=== PATIENT | male | born 1955 | race Caucasian/White ===

== ENCOUNTER 2017-01-15 06:41 | Inpatient (IN) ==
[2017-01-15] MEDS ORDERED: CeFAZolin Pre 2,000 MG/100 ML 2,000 MG/100 ML BAG IVPB ONE (06:55)
[2017-01-15] MEDS ORDERED: Albuterol 2.5 MG/3 ML NEBULIZER IH ONE (06:55)
[2017-01-15] MEDS ORDERED: *HR* Rocuronium Bromide 50 MG/5 ML VIAL ONE ×2 (06:59→09:56)
[2017-01-15] MEDS ORDERED: *HR* Midazolam HCl 2 MG/2 ML VIAL ONE (06:59)
[2017-01-15] MEDS ORDERED: *HR* Succinylcholine 200 MG/10 ML VIAL IVP ONE (06:59)
[2017-01-15] MEDS ORDERED: Dexamethasone 4 MG/ML VIAL ONE (06:59)
[2017-01-15] MEDS ORDERED: *HR* Phenylephrine 10 MG/ML VIAL ONE ×4 (06:59→13:16)
[2017-01-15] MEDS ORDERED: *HR* FentaNYL (PF) 100 MCG/2 ML VIAL ONE ×2 (06:59→08:19)
[2017-01-15] MEDS ORDERED: Lidocaine -MPF 2% 2 ML VIAL ONE ×3 (06:59→07:52)
[2017-01-15] MEDS ORDERED: *HR* Propofol 200 MG/20 ML VIAL IVP ONE (06:59)
[2017-01-15] MEDS ORDERED: Ondansetron 4 MG/2 ML VIAL ONE ×2 (06:59→14:29)
[2017-01-15] MEDS ORDERED: Heparin 1,000 UNITS/500 mL NS 1,000 ML ONE (07:18)
[2017-01-15] MEDS ORDERED: Ketamine *HR* 500 MG/10 ML MDV ONE (07:34)
--- NOTE | 2017-01-15 07:50 | Anesthesia Evaluation PreOp ---
Date of Encounter: 01/15/17 Time of Encounter: 07:48 - Past History Planned Operation: right fem-pop BPG Cardiac History: SD, CHF (EF was 10-15% after CABG, last EF was 40-45%), HTN ( poorly controlled), Hyperlipidemia, Cardiac Surgery (December 2015. 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: Denies Any Significant HX (Denies any strokes) Other Medical History: Thyroid (Hyperthyroid) Anesthesia History: No Prior Anesthetic Complications, Past Anesthesia (CABG) Alcohol Use: heavy Drug use: none Medications and Allergies Aspirin 81 mg PO DAILY 01/31/16 [History] Atorvastatin [Lipitor] 80 mg PO HS 01/31/16 [History] Levothyroxine [Synthroid] 25 mcg PO DAILY 01/31/16 [History] Carvedilol [Coreg] 25 mg PO BID 12/21/16 [History] Clopidogrel [Plavix] 75 mg PO DAILY 12/21/16 [History] Gabapentin [Neurontin] 300 mg PO TID 12/21/16 [History] Lisinopril [Zestril] 10 mg PO DAILY 12/21/16 [History] Carvedilol 12.5 mg PO BID 01/15/17 [History] Multivitamin [Multi-Day Vitamins] 1 each PO DAILY 01/15/17 [History] Allergies No Known Allergies Allergy (Verified 01/15/17 07:26) - Meds/Allergy Pre-op Review Medications Reviewed: Yes Allergies Reviewed: Yes Beta Blockers on Current Med List: Yes If Beta Blockers taken, Date/Time (Last Dose taken): today at approx. 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: Oriented 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 Discusses risks of lines, GA, possible need for blood products. Questions answered and agrees to proceed.)
--- NOTE | 2017-01-15 07:53 | History & Physical Report ---
Date of Encounter: 01/15/17 Time of Encounter: 07:52 24 Hour HP Update - Instructions Instructions: If the History and Physical is less than 30 days old and was completed prior to A.M. admission and or procedure and has NOT been updated on calendar day of procedure please complete this update prior to performing procedure. - Update Patient reports changes in Medical Condition: No Changes in examination, assessment, or condition: No Changes in Medication: No Preop tests/diagnostics Reviewed: Yes Surgery Remains Indicated: Yes Consent for Planned Operative Procedure(s) Verified: Yes - Pre-Operative Checklist Preoperative Checklist Indicated: Yes Prophylactic Antibiotic Ordered: Yes Home Medications Include Beta Jaciel: Yes Beta Jaciel Taken Today (Day of Surgery): Yes Beta Jaciel Taken Yesterday (Day Prior to Surgery): Yes Is VTE Prophylaxis Indicated?: Yes
[2017-01-15] MEDS: Ringers Solution, Lactated 1,000 ML IVC SCH ×3 (08:07→14:00)
--- NOTE | 2017-01-15 08:21 | Operative Note ---
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 The patient demonstrated pulse deficits and abnormal noninvasive testing. He underwent an angiogram. This demonstrated iliac artery disease on the left and a right superficial femoral artery occlusion and a left superficial femoral artery stenosis. A stent angioplasty was performed of the left iliac lesion and an attempt at passing a wire through the chronic total occlusion of the right superficial femoral artery was unsuccessful. He now comes the operating room in an attempt to revascularize the right lower extremity. Procedure After informed consent was obtained the patient was taken to the operating room. General endotracheal anesthesia was established. An arterial line was placed. The right lower extremity was sterilely prepped and draped. A timeout protocol was observed. Due to the extensive nature of the surgery and his diffuse disease to surgical team approach was utilized for this procedure. This was done in order to decrease blood loss and to decrease anesthetic time if possible. Dissection was made in the right groin. Dissection was carried down to the common femoral artery and bifurcation vessels. The dissection was carried to the level of the inguinal ligament and to the femoral bifurcation. The vessel was significantly calcific though there was a palpable pulse. The superficial femoral artery has Very dense calcific plaque disease. The greater saphenous vein was dissected through interrupted incisions along the length of the thigh into the level of the knee. Dissection of the above-knee popliteal revealed a very densely inflamed and calcific artery. Therefore the dissection was carried more distally to the area behind the patella and behind the knee. This area of the vessel appeared soft. The vein was then harvested and flushed with heparinized saline. It appeared to be of adequate size and caliber. Heparin was then administered area after 3 minute delay the common femoral artery and bifurcation vessels were then clamped. An 11 blade knife and Mcgarry scissors were used to open the common femoral artery and the distal aspect. The very thickened dense calcific plaque was inhibiting the adequate hemostasis with clamps and vessel loops. Therefore an endarterectomy was necessary. Also the calcific plaque was so dense that a 6-0 Prolene could not be passed through the plaque nor could a 5-0 Prolene. Therefore an endarterectomy was performed of the distal third of the common femoral artery and orifice of the profunda femoris artery. The size of the remnant vessel allowed a clamp to be placed immediately proximal to it and hemostasis was achieved. However due to the width of the endarterectomy incision the vein needed to be placed then in a non-reversed fashion because of the larger diameter of the groin level vein. With this done the end of vein was anastomosed to the side of the endarterectomized common femoral artery. The clamps are removed and hemostasis was achieved at the anastomotic area. LeMaitre valvulotomes were then inserted beginning with a 2 and then using a 2.5 and then finally a 3.5 diameter device. With the passage of these devices all the valves were lysed and excellent pulsatile flow was achieved through the vein bypass. With this accomplished the vein was back flushed with heparinized saline. A subsartorial tunnel was created and the vein was passed from the groin to the popliteal area. The popliteal artery was opened at the distal above the knee level. Significant plaque was encountered which required an endarterectomy to be performed at the distal location. After this was accomplished the end of the vein was sewn to the side of the endarterectomized right popliteal artery. After appropriate backbleeding and flushing the graft was opened. However evaluation of the Doppler signals distally revealed no Doppler signals at the ankle. Therefore my concern was residual plaque in the popliteal artery as by angiogram it showed dense disease. A below the knee popliteal artery incision was then made on the medial aspect of the proximal calf. Dissection was carried down to the popliteal artery and control was obtained of the vessel. A very hard area of plaque formation was identified at the very proximal aspect of the [id number] popliteal artery. An endarterectomy was then performed of the below the knee popliteal artery. A longitudinal incision was made. Very thick and dense plaque was identified and this was endarterectomized. A bovine pericardial patch angioplasty was then performed over this endarterectomized [id number] popliteal artery. After appropriate backbleeding and flushing the vessels were opened. Pulsatile flow was identified in the popliteal artery from [id number] to [id number]. In addition a Doppler signal was identified at the posterior tibial artery at the ankle. All the incisions were then irrigated and hemostasis achieved. The incisions were closed in layers using absorbable suture. There were no intraoperative complications. The patient tolerated the procedure well. The patient was taken from the operating room to the recovery room in a hemodynamically stable state and extubated.
[2017-01-15] MEDS ORDERED: *HR* HYDROmorphone (PF) 1 MG/ML SYRINGE IVP PRN (09:11)
[2017-01-15] MEDS ORDERED: Ondansetron 4 MG/2 ML VIAL IVP PRN ×2 (09:11→16:49)
[2017-01-15] MEDS ORDERED: *HR* Labetalol 100 MG/20 ML MDV IVP PRN (09:11)
[2017-01-15] MEDS ORDERED: NiCARdipine 2.5 MG/10 ML Syringe IVPB ONE (09:21)
[2017-01-15] MEDS ORDERED: *HR* Heparin 5,000 UNIT/ML VIAL ONE ×2 (09:30→11:52)
--- NOTE | 2017-01-15 10:48 | Anesthesia Procedures ---
Date of Encounter: 01/15/17 Time of Encounter: 08:15 Procedures: Anesthesia - Arterial Line Consent obtained: written consent Time out performed: Yes Sedation: Versed (mg): 1 Sedation: Fentanyl (mcg): 100 Supplemental Oxygen via Nasal Cannula (L/min): 15 (FM) Local Anesthetic: Lidocaine 1% Amount of Anesthetic used (mls): 1 Size (Gauge): 20 Length (inches): 1 3/4 Technique Used: sterile prep, guide wire technique, direct puncture technique Post-Procedure: line taped into place, dry sterile dressing placed Patient tolerated procedure: well Complications: none Site: Radial L Vitals: see anesthetic record
[2017-01-15] MEDS ORDERED: Acetaminophen IV 1,000 MG/100 ML INFUS..BTL ONE (10:50)
[2017-01-15] MEDS ORDERED: *HR* HYDROmorphone 2 MG/ML SYRINGE ONE (14:05)
--- NOTE | 2017-01-15 15:51 | Anesthesia Evaluation Post Op ---
Date of Encounter: 01/15/17 Time of Encounter: 15:50 - Vital Signs Vital Signs: Vital Signs/O2 Sat, Most Current Temp Pulse Resp BP Pulse Ox 97.4 F L 80 16 99/57 99 01/15/17 15:20 01/15/17 15:30 01/15/17 15:30 01/15/17 15:30 01/15/17 15:30 - Lungs Lungs: Clear Ascult./Percussion - Airway Airway: Non-obstructed - Cardiovascular Regular Rate - Mental Status Mental Status: Alert & Oriented, Answers Appropriately - Pain Pain Scale: 3 Pain Scale used: Numeric (1 - 10) - Nausea Vomiting Nausea Vomiting: Not Present - Hydration Hydration: NPO, Sánchez catheter - Discharge PostOp Status: Transfer Patient to floor
[2017-01-15] MEDS ORDERED: Naloxone 0.4 MG/ML INJ IVP PRN (15:57)
[2017-01-15] MEDS ORDERED: Acetaminophen 325 MG TABLET PO PRN (15:57)
[2017-01-15] MEDS ORDERED: *HR* Morphine 2 MG/ML SYRINGE IVP PRN ×2 (15:57)
[2017-01-15] MEDS: *HR* HYDROcodone/Acet 5/325 mg TABLET PO PRN ×2 (16:30→23:20)
[2017-01-15] MEDS: Gabapentin 300 MG CAPSULE PO SCH ×2 (16:44→21:18)
[2017-01-15] MEDS: ceFAZolin 2,000 MG in D5% in Water 100 ML IVPB SCH (16:46)
--- NOTE | 2017-01-15 17:37 | Operative Note ---
Date of procedure: 01/15/17 Pre-op diagnosis: Peripheral Vascular Disease with Disabling claudication Post-op diagnosis: same Procedure: 1. Right femoral to popliteal artery bypass with nonreversed right greater saphenous vein. 2. Right common and deep femoral artery endarterectomy 3. Right above knee popliteal artery endarterectomy. 4. Right below knee popliteal artery endarterectomy with bovine pericardial patch angioplasty. Complications: None Anesthesia: GETA Surgeon: Steve Gavin Co-Surgeon: Pierre Barbour Estimated blood loss (cc): 250 Condition: stable Disposition: PACU Procedure in Detail: Indications: The patient is a 61 year old male who was found to have severe peripheral vascular disease with disabling claudication. He was found to have a right superficial femoral artery occlusion and right popliteal disease on angiogram. Bypass was recommended for symptomatic relief. Procedure: The patient was identified in the preoperative area. The risks, benefits, and alternatives of the procedure were discussed. All questions were answered. He was then taken to the operating room and placed in supine position on the operating room table. After the induction of general endotracheal anesthesia, he was cleaned and draped in normal sterile fashion. A two surgeon approach was utilized for this procedure in order to minimize anesthetic time and the risks for complications due to the patients comorbid conditions. In addition, a two surgeon approach was used for intraoperative decision making. An oblique incision was made over the right groin sharply. Hemostasis was obtained with electrocautery. Through a process of blunt, sharp, and electrocautery dissection, the right femoral vessels were dissected circumferentially and surrounded with vessel loops. A longitudinal incision was made on the left medial distal thigh sharply. Hemostasis was obtained with electrocautery. Through a process of blunt, sharp, and electrocautery dissection, the right above-knee popliteal artery was dissected proximally and distally and surrounded with vessel loops. Significant plaque was noted in the proximal popliteal artery and the artery was then dissected more distally and surrounded with a vessel loop. Multiple skin incisions were made along the thigh between the two incisions along the saphenous vein. The saphenous vein was completely mobilized with blunt, sharp, and electrocautery dissection. The side branches were clamped, divided, tied off with 3-0 and 4-0 silk sutures. Distally, the vein was mobilized in the calf, clamped, divided, tied off with silk suture ligature and then further completely mobilized through the incisions. The vein was flushed and noted to be adequate in size and consistency for bypass. The patient received 5000 units of intravenous heparin. Additional heparin was given throughout the procedure to maintain adequate anticoagulation. The vein was initially reversed and tension was applied to the femoral vessel loops. An arteriotomy was then made in the common femoral artery and the vein graft was cut to fit the defect. At this point it was noted that a highly calcific plaque was noted to be present within the common femoral artery. The vessel loop did not provide complete hemostasis proximally. A 4 nepali janet balloon was then advanced though the arteriotomy and inflated to improve hemostasis It was then noted that the plaque would need to be excised in order to perform the anastamosis. A freer elevator was then used to perform an endarterectomy on the common femoral and origin orf the deep femoral arteries. The arteriotomy had to be extended to accomplish the endarterectomy. On completion of the endarterctomy, pulsatile flow as noted from the external iliac artery and strong retrograde flow was noted from the deep femoral artery. Due to the size of the arteriotomy, the graft was reoriented in a nonreversed fashion. The graft was cut to fit the arteriotomy and anastamosed with a running 6-0 Prolene. After completing the proximal anastamosis, the vessels were reperfused. A 2.0mm, 2.5mm then 3.5mm valvulotome was then advanced and the valves were lysed. Then pulsatile flow was noted through the vein graft. A tunnel was then created between the femoral and popliteal artery incisions. The vein was marked without torsion and then it was tunneled between the two incisions. After tunneling, the vein was unclamped and was noted to have strong pulsatile flow once again. It was re-clamped. The popliteal vessels were occluded and a longitudinal arteriotomy was made in the popliteal artery. Significant plaque was noted at the above knee popliteal artery and an endarterectomy was performed with a dental freer. Inspection of the proximal and distal endpoints revealed no elevated flaps. The distal end of the graft was sutured in place with a running 6-0 Prolene,. The distal arterial anastomosis was completed and prior to completing the closure, the popliteal vessels were flushed and reoccluded. Heparinized saline was infused into the lumen. The anastamosis was tied and then flow was restored. A polyphasic signal was identified distal to the distal anastamosis with a doppler. However, no signals were identified at the pedal vessels. An incision was then made below the knee and through a process of blunt, sharp and electrocautery dissection, the popliteal artery was dissected circumferentially and surrounded with vessel loops. Tension was applies to the vessel loops and a longitudinal arteriotomy was made. Nearly occlusive plaque was encountered and a below knee popliteal artery endarterectomy was performed. Proximal and distal endpoints were inspected and no elevated flaps were identified. Vigorous pulsatile flow was noted when the proximal loop was released temporarily. A bovine pericardial patch was cut to fit the defect and sutured in place with a running 6-0 prolene. Flow was then restored. Polyphasic signals were noted distal to the distal anastomosis as well as at the posterior tibial artery. Wounds were irrigated with antibiotic-containing saline. Meticulous hemostasis was obtained throughout the wound with electrocautery. Wounds were reapproximated with layers of 2-0 and 3-0 Vicryl. Skin was reapproximated with 4-0 Vicryl. A sterile dressing was applied. The patient was extubated and taken to recovery room in stable condition.
[2017-01-16] MEDS: ceFAZolin 2,000 MG in D5% in Water 100 ML IVPB SCH ×2 (01:17→09:18)
[2017-01-16 05:13] LABS: Hematocrit 24.8 % (37.5-50.1); Mean Corpuscular HGB Conc 33.5 g/dL (31.6-35.5); Mean Corpuscular Hemoglobin 30.4 pg (28.0-33.3); Mean Corpuscular Volume 90.8 fL (83.0-100.0); Mean Platelet Volume 10.4 fL (9.4-12.4); Platelet Count 200 K/mcL (140-400); Red Blood Count 2.73 M/mcL (4.19-5.50); Red Cell Distribution Width 14.1 % (11.5-14.5)
[2017-01-16 05:30] LABS: Potassium 4.8 mEq/L (3.5-4.5)
[2017-01-16 05:37] LABS: Hemoglobin 8.3 g/dL (12.9-16.9)
[2017-01-16 05:39] LABS: Lymphocytes # 2.1 K/mcL (0.6-4.6); Monocytes # 1.1 K/mcL (0.0-1.3); Platelet Estimate Normal (Normal)
[2017-01-16] MEDS ORDERED: Levothyroxine 25 MCG TABLET PO SCH (06:30)
[2017-01-16] MEDS: Gabapentin 300 MG CAPSULE PO SCH ×2 (07:48→14:56)
[2017-01-16] MEDS: *HR* HYDROcodone/Acet 5/325 mg TABLET PO PRN ×2 (07:48→14:56)
[2017-01-16] MEDS ORDERED: Multivit/Ca/Min/Fe/FA 1 TAB TABLET PO SCH (09:00)
[2017-01-16] MEDS ORDERED: Aspirin 81 MG TAB.CHEW PO SCH (09:00)
[2017-01-16 15:48] VITALS: BP 127/71
--- NOTE | 2017-01-16 17:14 | Discharge Summary ---
Date of Encounter: 01/16/17 Time of Encounter: 17:12 - Discharge Diagnosis (1) PAD (peripheral artery disease) Priority: Primary Status: Acute Comments: Severe lifestyle limiting claudication of both lower extremities. Patient underwent extensive revascularization for the right lower extremity at surgery. The patient had undergone left iliac interventional therapy. Patient will need further left superficial femoral artery endovascular intervention (2) Carotid artery occlusion Priority: Secondary Status: Chronic Comments: Right internal carotid artery occlusion Qualifiers: Laterality: right Qualified Code(s): I65.21 - Occlusion and stenosis of right carotid artery (3) HTN (hypertension) Priority: Secondary Status: Chronic Comments: Patient is under appropriate medical control for hypertension. Qualifiers: Hypertension type: essential hypertension Qualified Code(s): I10 - Essential (primary) hypertension (4) Coronary artery disease Priority: Secondary Status: Chronic Comments: Patient is presently asymptomatic for coronary artery disease. He has a past history of myocardial infarction. Qualifiers: Coronary Disease-Associated Artery/Lesion type: [place] artery [place] vs. transplanted heart: [place] heart Associated angina: without angina Qualified Code(s): I25.10 - Atherosclerotic heart disease of [place] coronary artery without angina pectoris - Discharge Medications Prescriptions: HYDROcodone/Acet 5/325 mg [Clyman 5-325 mg] 1 tab PO Q6HR PRN #10 tablet PRN Reason: Moderate Pain Home Medications: Aspirin 81 mg PO DAILY 01/31/16 [History] Atorvastatin [Lipitor] 80 mg PO HS 01/31/16 [History] Levothyroxine [Synthroid] 25 mcg PO DAILY 01/31/16 [History] Carvedilol [Coreg] 25 mg PO BID 12/21/16 [History] Clopidogrel [Plavix] 75 mg PO DAILY 12/21/16 [History] Lisinopril [Zestril] 10 mg PO DAILY 12/21/16 [History] Carvedilol 12.5 mg PO BID 01/15/17 [History] Multivitamin [Multi-Day Vitamins] 1 each PO DAILY 01/15/17 [History] HYDROcodone/Acet 5/325 mg [Clyman 5-325 mg] 1 tab PO Q6HR PRN #10 tablet [Rx] Allergies/Adverse Reactions: Allergies No Known Allergies Allergy (Verified 01/15/17 07:26) Date of admission: 01/15/17 14:25 Primary care physician: Niurka Aaron MD Consults: None Procedure(s) Performed: Right femoral-popliteal bypass graft, right common femoral artery endarterectomy , right above-knee popliteal artery endarterectomy, and right below the knee popliteal artery endarterectomy with bovine pericardial patch angioplasty. Discharging clinician: Pierre Barbour Anticipated date of discharge: 01/16/17 - Patient Status Disposition: Home, Self-Care Condition: Good Functional capacity at discharge: independent ambulation Overall status at discharge: patient is progressing back to baseline - Discharge Instructions Follow Up With: Jaida Morel CNP [Advanced Practice Nurse] - 01/23/17 2:30 pm Pierre Barbour MD [Partnered Physician] - 02/06/17 9:45 am Niurka Aaron MD [Primary Care Provider] - Additional Instructions: Remove right thigh dressings in 2 days. Keep right thigh surgical incisions dry for a total of 5 days following surgery. No automobile driving. No lifting greater than 10 pounds. No manual labor. Patient may ambulate inside and outside. Patient may use stairs as tolerated. Patient is to resume his usual medications with the exception of the gabapentin which is on hold. A prescription for Clyman will be written for the patient for postoperative analgesia. The patient is to use the incentive spirometer at home 10 times an hour while awake. Patient is to elevate the right lower extremity while seated. He is to avoid standing for more than 5 minutes at a time. - Diet and Activity Activity: increase activity as tolerated Diet: low fat, low cholesterol - Hospital Course Hospital course: Mr. Saab is a 61 year old male For surgery for the right lower extremity. He underwent an extensive right lower extremity revascularization including bypass grafting and endarterectomies. The patient had a warm and pink right foot following surgery. Had a palpable pedal pulse and multiphasic Doppler signals. The patient was ambulating on the floor on postoperative day #1. The patient will be evaluated with a bladder scan as he has not yet urinated since his Sánchez was removed earlier this morning. If the patient is able to spontaneously void he will be discharged to home later today. If he is unable to void a Sánchez catheter will be placed and we will be placed on gravity drainage for the Sánchez catheter overnight and we will again remove the catheter in the morning and attempt to have the patient spontaneously void. - Time Spent with Patient Total time spent providing and/or coordinating discharge services: Exam Vital Signs, Last 4 Hours Temp Pulse Resp BP Pulse Ox 01/16/17 15:43 97.5 F L 68 16 127/71 97 General: Present: Conversant, No Apparent Distress HEENT: Present: Atraumatic Cardiac: Present: Reg Rate and Rhythm, Normal S1 and S2 Lungs: Present: Decreased breath sounds Neuro: Present: Alert and responsive, No focal deficits noted Abdomen: Present: Soft, Non-tender Vascular: Present: Normal capillary refill, Pulse, normal, Surgical incisions ( Mild drainage from the distal thigh incision on the right thigh. There is no finding of hematoma or ecchymosis.) Skin: Present: No rashes noted on visualized skin - VTE Documentation of Mechanical Device: Intermittent pneumatic compression device
== END 2017-01-16 18:00 | disposition home or self-care (01) | DRG 181 ==
LOC: SAMDAY 06:41 → 2NNU 14:25
PROVIDERS: ADMIT Surgery Vascular Surgery; ATTEND Surgery Vascular Surgery

== ENCOUNTER 2017-01-19 03:59 | Inpatient (IN) ==
[2017-01-19] MEDS ORDERED: Lidocaine 1% 20 ML MDV ID ONE (04:53)
--- NOTE | 2017-01-19 04:59 | Emergency Department Note ---
Disposition Clinical Impression: NSTEMI (non-ST elevated myocardial infarction) Disposition: Admitted As Inpatient Condition: Good Referrals: Jaida Morel CNP [Primary Care Provider] - Forms: Work/School Release, ED Satisfaction Letter Time of Disposition: 06:59 General Adult HPI - General Chief complaint: ED General Medical Stated complaint: ringing in ears Time Seen by Provider: 01/19/17 04:53 Source: patient, family Mode of arrival: ambulatory Limitations: no limitations Nursing Notes Reviewed: Yes Vital Signs Reviewed: Yes - History of Present Illness HPI Narrative: 61 year old male with recent femop bypass due to blocked arteries by Dr. 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 Viji states he saw the incision and that he became increasigly more anxious and felt his blood pressure go up. his took his blood pressure and it was 178/140s by an automatic cuff. Viji sttes that that time he devleoped blurred vision and ringing in the ears which has resolve now, which he attributes to his anxiety. Denies headache, fevers, nausea and vomitting. He is feeling incresingly numbness and tingling to the RLE but his foot is warm with palpable DP pulse. Pain Scale: 0 - Related Data Home Medications Medication Instructions Recorded Confirmed Aspirin 81 mg PO DAILY 01/31/16 01/15/17 Atorvastatin [Lipitor] 80 mg PO HS 01/31/16 01/15/17 Levothyroxine [Synthroid] 25 mcg PO DAILY 01/31/16 01/15/17 Carvedilol [Coreg] 25 mg PO BID 12/21/16 01/15/17 Clopidogrel [Plavix] 75 mg PO DAILY 12/21/16 01/15/17 Lisinopril [Zestril] 10 mg PO DAILY 12/21/16 01/15/17 Carvedilol 12.5 mg PO BID 01/15/17 01/15/17 Multivitamin [Multi-Day Vitamins] 1 each PO DAILY 01/15/17 01/15/17 Previous Rx's Medication Instructions Recorded HYDROcodone/Acet 5/325 mg [[place] 1 tab PO Q6HR PRN #10 tablet 01/16/17 5-325 mg] Allergies Allergy/AdvReac Type Severity Reaction Status Date / Time No Known Allergies Allergy Verified 01/15/17 07:26 Constitutional: Denies: fever, chills, weakness, weight change Eyes: Reports: other (blurriness to vision). Denies: eye pain, eye discharge, vision change ENT ED: Reports: other (ringin in the ear). Denies: ear pain, throat pain, dental pain, hearing loss, epistaxis, congestion, dysphagia Cardiovascular: Denies: chest pain, palpitations, dyspnea on exertion, edema, syncope Respiratory: Denies: cough, dyspnea, wheezes, hemoptysis, stridor Gastrointestinal: Denies: abdominal pain, nausea, vomiting, diarrhea, constipation, hematemesis, melena, hematochezia Genitourinary: Denies: urgency, dysuria, frequency, hematuria Musculoskeletal: Denies: back pain, neck pain, arthralgia, myalgia Integumentary: Reports: as per HPI, other (laceration). Denies: rash, abrasion , lesions Neurological: Denies: headache, weakness, numbness, paresthesias, confusion, abnormal gait, vertigo Psychiatric: Denies: anxiety, depression, suicidal thoughts, homicidal thoughts , auditory hallucinations, visual hallucinations Endocrine: Denies: fatigue Hematological/Lymphatic: Denies: easy bleeding, easy bruising Allergic/Immunologic: Denies: facial swelling, urticaria Past Medical History - Past Medical History Medical history: Reports: myocardial infarction, hyperlipidemia, hypertension, thyroid disease, coronary artery disease, CHF Surgical history: Reports: angioplasty/stent, coronary bypass (CABG), other Psychiatric history: Reports: no psych history - Social History Smoking Status: Former smoker Smokeless Tobacco Status: No Alcohol use: Reports: heavy Drug use: Reports: none Physical Exam - General Limitations: no limitations General appearance: alert, in no apparent distress - Head Head exam: atraumatic, normocephalic, normal inspection - Eye Eye exam: Present: normal appearance, PERRL, EOMI - Expanded Eye Exam Pupils: Left: reactive - ENT ENT exam: normal exam, normal oropharynx, mucous membranes moist - Expanded ENT Exam External ear exam: Present: normal external inspection Mouth exam: Present: normal external inspection Teeth exam: Present: normal inspection Throat exam: Present: normal inspection - Neck Neck exam: Present: normal inspection, full ROM, trachea midline - Chest Chest inspection: Present: normal inspection, symmetric chest wall rise - Respiratory Respiratory exam: Present: normal lung sounds bilaterally - Cardiovascular Cardiovascular exam: Present: regular rate, normal rhythm, normal heart sounds, other (CABG scar) - Abdominal Exam Abdominal exam: Present: soft, Non-Tender. Absent: tenderness, distention, guarding, rebound, rigidity - Extremities Exam Extremities exam: Present: normal inspection, full ROM. Absent: tenderness, pedal edema - Expanded Upper Extremity Exam Shoulder exam: Present: normal inspection, full ROM Arm exam: Present: normal inspection, full ROM Elbow exam: Present: normal inspection, full ROM Forearm/Wrist exam: Present: normal inspection, full ROM Hand exam: Present: normal inspection, full ROM Vascular exam: Normal: capillary refill, radial pulse - Expanded Lower Extremity Exam Hip/Pelvis exam: Present: normal inspection, full ROM Upper leg exam: Present: normal inspection, full ROM 1 - mutiple surgical scars post op, with minimal ecchymosis in dependent areas 2 - 2cm post surgical incision that is open Knee exam: Present: normal inspection, full ROM Lower leg exam: Present: normal inspection, full ROM Ankle exam: Present: normal inspection, full ROM Foot/toe exam: Present: normal inspection, full ROM Neurovascular/Tendon exam: Absent: motor deficit, sensory deficit, tendon deficit - Back Exam Back exam: Present: normal inspection, full ROM. Absent: tenderness - Neurological Exam Neurological exam: Present: alert, oriented X3 - Expanded Neurological Exam Patient oriented to: Present: person, place, time Speech: Present: fluid speech Coma Scale Eye Opening: Spontaneous Coma Scale Motor Response: Obeys Commands Coma Scale Verbal Response: Oriented Coma Scale Total: 15 - Psychiatric Psychiatric exam: Present: normal affect, normal mood - Skin Skin exam: Present: warm, dry, intact, normal color Course Course Narrative: we will repair laceration and do focused cardiac exam to assess for demand ischemic due to elevated blood pressure recorded at home - Reevaluation(s) Reevaluation #1: discussing with pativicenta about his history of chest pain due to elevated troponin and he states that he has not been experiencing chest pain but his heartburn seems to have been worse over the past 4 days and has had to increase his tums without relief. WE will consult cards and vascular before starting heparin. Time: 06:56 - Consultations Consultation #1: discussed case with cards and vascular (Niko/Romaine) and they both agree that patient can be heparinized for his NSTEMI. Time: 06:59 Vital Signs Temperature 98.4 F 01/19/17 04:02 Pulse Rate 101 01/19/17 04:02 Respiratory Rate 18 01/19/17 04:02 Blood Pressure 160/77 01/19/17 04:02 O2 Sat by Pulse Oximetry 97 01/19/17 04:02 Temperature 98.4 F 01/19/17 04:02 Pulse Rate 101 01/19/17 07:14 Respiratory Rate 18 01/19/17 07:14 Blood Pressure 156/57 01/19/17 07:14 O2 Sat by Pulse Oximetry 95 01/19/17 07:14 Oxygen Delivery Oxygen Delivery Room Air Procedures - Laceration Laceration 1 Site: lower extremity Side (If applicable): right Description: linear Depth: simple, single layer Local Anesthetic: lidocaine 1%, with epi Amount of Anesthesia Used (mL): 3 Pre-repair: wound explored Skin layer closed with: nylon Size: 3-0 Technique: simple, interrupted Medical Decision Making - Lab Data Result diagrams: 01/19/17 05:32 01/19/17 05:32 Lab Results 01/19/17 01/19/17 01/19/17 Range/Units 05:32 05:32 05:32 WBC 12.0 H (4.3-11.1) K/mcL RBC 2.63 L (4.19-5.50) M/mcL Hgb 8.0 L (12.9-16.9) g/dL Hct 24.3 L (37.5-50.1) % MCV 92.4 (83.0-100.0) fL MCH 30.4 (28.0-33.3) pg MCHC 32.9 (31.6-35.5) g/dL RDW 14.1 (11.5-14.5) % Plt Count 249 (140-400) K/mcL MPV 9.8 (9.4-12.4) fL Immature Gran % 0.6 (0-4) % Seg Neutrophils % 67.2 % Lymphocytes % 20.2 % Monocytes % 9.6 % Eosinophils % 1.9 % Basophils % 0.5 % Neutrophils # 8.1 (1.6-8.9) K/mcL Lymphocytes # 2.4 (0.6-4.6) K/mcL Monocytes # 1.2 (0.0-1.3) K/mcL Eosinophils # 0.2 (0.0-0.6) K/mcL Basophils # 0.1 (0.0-0.2) K/mcL Immature Plt Fraction 5.2 (1.1-6.1) % PT (9.4-12.1) Seconds INR APTT (26.0-36.0) Seconds Sodium 137 (136-145) mEq/L Potassium 5.0 H (3.5-4.5) mEq/L Chloride 102 (98-109) mEq/L Carbon Dioxide 27 (19-29) mEq/L BUN 30 H (8-26) mg/dL Creatinine 1.44 H (0.72-1.25) mg/dL Est GFR ( Amer) > 60 (> 60) Est GFR (Non-Af Amer) 50 L (> 60) BUN/Creatinine Ratio 21 (6-26) Glucose 122 H (70-99) mg/dL Calculated Osmolality 291 (280-300) Calcium 10.8 (8.6-10.8) mg/dL Total Bilirubin 0.7 (0.2-1.2) mg/dL AST 29 (5-34) Units/L ALT 12 (0-55) Units/L Alkaline Phosphatase 71 (38-126) Units/L Troponin I 2.11 H* (0-0.03) ng/mL Serum Total Protein 7.4 (6.0-8.3) g/dL Albumin 3.6 (3.5-5.0) g/dL Globulin 3.8 H (2.4-3.5) g/dL Albumin/Globulin Ratio 0.9 L (1.1-2.2) 01/19/17 Range/Units 05:32 WBC (4.3-11.1) K/mcL RBC (4.19-5.50) M/mcL Hgb (12.9-16.9) g/dL Hct (37.5-50.1) % MCV (83.0-100.0) fL MCH (28.0-33.3) pg MCHC (31.6-35.5) g/dL RDW (11.5-14.5) % Plt Count (140-400) K/mcL MPV (9.4-12.4) fL Immature Gran % (0-4) % Seg Neutrophils % % Lymphocytes % % Monocytes % % Eosinophils % % Basophils % % Neutrophils # (1.6-8.9) K/mcL Lymphocytes # (0.6-4.6) K/mcL Monocytes # (0.0-1.3) K/mcL Eosinophils # (0.0-0.6) K/mcL Basophils # (0.0-0.2) K/mcL Immature Plt Fraction (1.1-6.1) % PT 12.9 H (9.4-12.1) Seconds INR 1.2 APTT 23.8 L (26.0-36.0) Seconds Sodium (136-145) mEq/L Potassium (3.5-4.5) mEq/L Chloride (98-109) mEq/L Carbon Dioxide (19-29) mEq/L BUN (8-26) mg/dL Creatinine (0.72-1.25) mg/dL Est GFR ( Amer) (> 60) Est GFR (Non-Af Amer) (> 60) BUN/Creatinine Ratio (6-26) Glucose (70-99) mg/dL Calculated Osmolality (280-300) Calcium (8.6-10.8) mg/dL Total Bilirubin (0.2-1.2) mg/dL AST (5-34) Units/L ALT (0-55) Units/L Alkaline Phosphatase (38-126) Units/L Troponin I (0-0.03) ng/mL Serum Total Protein (6.0-8.3) g/dL Albumin (3.5-5.0) g/dL Globulin (2.4-3.5) g/dL Albumin/Globulin Ratio (1.1-2.2) - EKG Data EKG #1 EKG attestation: Yes I reviewed and interpreted this EKG. EKG results narrative: sinus tachycardia with rate of 104. old inferiolateral STEMI present. new ischemic changes in leads with t wave inversions in II, avf and ST elevation in III, with v4 depression which is different from 12/13/16. 0458 EKG #2: NSR with rate of 99. Same as EKG #1 0644 Critical Care Time Critical Care Time: Yes Total Critical Care Time: 45 Attestation: Critical care performed: Time is exclusive of separately billable procedures. Time includes: direct patient care, patient reassessment, coordination of patient care, interpretation of data (laboratory data, radiology data, and respiratory data), review of patient's medical records, medical consultation and documentation of patient care. Procedures included in critical care time: Procedures excluded from critical care time: Laceration repair Attestation Statement - Attestation Attestation: I, Rudi Ferreira MD, personally evaluated this patient and discussed their management with the resident physician. I reviewed the resident's note and agree with the documented findings, medical decision making, and plan of care. 61-year-old male presents to the emergency department with multiple complaints. Patient had a vascular bypass procedure on his right leg approximately 4 days ago and his primary concerned is that one of the wounds on the leg has dehisced and is weeping serosanguineous fluid. No significant pain in the leg. No fever. He also complains that he has had intermittent ringing in his ears and feels like he can sometimes hears heart beating in his ears. States that it sounds like his head is in a barrel at times. This seems to come and go. He complains of being very anxious and panicky due to the drainage on his leg. No chest pain or shortness of breath. No fever. On examination patient is a well-developed well-nourished male in no acute distress. He is alert and oriented 3. There is no cyanosis or diaphoresis. Chest is nontender to palpation. Breath sounds are clear and equal bilaterally. Heart regular rate and rhythm. Abdomen soft and nontender with normal bowel sounds. There is a 2-3 cm area of wound dehiscence on the medial right thigh. Labs reviewed and patient noted to have an elevated troponin of 2.11. EKG does show some new but nonspecific changes with some new T-wave inversions and some lateral ST segment depression. Dr. Lange discussed case with the vault maker, Dr. Pope, and also with the vascular surgeon, Dr. Gavin. They both felt patient could be given heparin. The hospitalist, Dr. Gamboa, was consulted and accepted admission of the patient.
[2017-01-19 05:39] LABS: Basophils # 0.1 K/mcL (0.0-0.2); Basophils % 0.5 %; Eosinophils # 0.2 K/mcL (0.0-0.6); Eosinophils % 1.9 %; Hematocrit 24.3 % (37.5-50.1); Immature Granulocytes % 0.6 % (0-4); Immature Platelets 5.2 % (1.1-6.1); Lymphocytes # 2.4 K/mcL (0.6-4.6); Lymphocytes % 20.2 %; Mean Corpuscular HGB Conc 32.9 g/dL (31.6-35.5); Mean Corpuscular Hemoglobin 30.4 pg (28.0-33.3); Mean Corpuscular Volume 92.4 fL (83.0-100.0); Mean Platelet Volume 9.8 fL (9.4-12.4); Monocytes # 1.2 K/mcL (0.0-1.3); Monocytes % 9.6 %; Neutrophils # 8.1 K/mcL (1.6-8.9); Platelet Count 249 K/mcL (140-400); Red Blood Count 2.63 M/mcL (4.19-5.50); Red Cell Distribution Width 14.1 % (11.5-14.5); Segmented Neutrophils % 67.2 %
[2017-01-19 05:52] LABS: Alanine Aminotransferase 12 Units/L (0-55); Albumin 3.6 g/dL (3.5-5.0); Albumin/Globulin Ratio 0.9 (1.1-2.2); Alkaline Phosphatase 71 Units/L (38-126); Aspartate Amino Transferase 29 Units/L (5-34); BUN/Creatinine Ratio 21 (6-26); Bilirubin,Total 0.7 mg/dL (0.2-1.2); Blood Urea Nitrogen 30 mg/dL (8-26); Calcium 10.8 mg/dL (8.6-10.8); Carbon Dioxide 27 mEq/L (19-29); Chloride 102 mEq/L (98-109); Globulin 3.8 g/dL (2.4-3.5); Glucose 122 mg/dL (70-99); Osmolality,Calculated 291 (280-300); Sodium 137 mEq/L (136-145); Total Protein 7.4 g/dL (6.0-8.3); eGFR For African Americans > 60 (> 60); eGFR For Non-African Americans 50 (> 60)
[2017-01-19] MEDS ORDERED: Aspirin 81 MG TAB.CHEW PO ONE (06:17)
[2017-01-19 06:32] LABS: INR 1.2; Prothrombin Time 12.9 Seconds (9.4-12.1)
[2017-01-19] MEDS ORDERED: *HR* Heparin 5,000 UNIT/ML VIAL IVP ONE (06:58)
[2017-01-19] MEDS ORDERED: *HR* Heparin 5,000 UNIT/ML VIAL IVP PRN ×2 (06:58)
[2017-01-19] MEDS ORDERED: Heparin 25,000 UNIT/500 ML D5W 25,000 UNIT/500 ML MLS IVC SCH (07:00)
[2017-01-19 07:19] LABS: Activated Partial Thrombo Time 23.8 Seconds (26.0-36.0)
[2017-01-19] MEDS ORDERED: *HR* Metoprolol 5 MG/5 ML VIAL IVP PRN (07:26)
[2017-01-19 08:20] LABS: Hematocrit 23.6 % (37.5-50.1); Hemoglobin 7.8 g/dL (12.9-16.9); Immature Platelets 4.3 % (1.1-6.1); Mean Corpuscular HGB Conc 33.1 g/dL (31.6-35.5); Mean Corpuscular Hemoglobin 30.6 pg (28.0-33.3); Mean Corpuscular Volume 92.5 fL (83.0-100.0); Mean Platelet Volume 9.7 fL (9.4-12.4); Red Blood Count 2.55 M/mcL (4.19-5.50); Red Cell Distribution Width 14.2 % (11.5-14.5)
--- NOTE | 2017-01-19 08:21 | Internal Med History&Physical ---
Date of Encounter: 01/19/17 Time of Encounter: 08:19 Assessment and Plan (1) Myocardial infarction acute Current visit: Yes Status: Suspected Admit inpatient. Patient with OR. With ischemic EKG changes. Will continue IV heparin. Consult cardiology. Patient went to require cardiac catheterization. Keep nothing by mouth. Follow cardiology recommendations. Monitor vital signs closely. High risk for complications. Qualifiers: Myocardial infarction ST status: non-ST elevation myocardial infarction Qualified Code(s): I21.4 - Non-ST elevation (NSTEMI) myocardial infarction (2) Status post femoropopliteal bypass surgery Current visit: Yes Status: Acute With bleeding at surgical site. Appears superficial. Has been sutured in the ER. We will monitor closely especially as patient will be on heparin. Consult vascular surgery. (3) PAD (peripheral artery disease) Current visit: Yes Status: Chronic Continue aspirin, statin and Plavix. (4) HTN (hypertension) Current visit: No Status: Chronic Blood pressure is elevated. Will monitor and continue home medications. Qualifiers: Hypertension type: essential hypertension Qualified Code(s): I10 - Essential (primary) hypertension (5) Coronary artery disease Current visit: No Status: Chronic With history of PCI and stent and coronary artery bypass grafting. Troponins elevated and patient appears to be having an OR. Will monitor closely. Continue home medications including aspirin, statin, Plavix, YESIKA inhibitor. Qualifiers: Coronary Disease-Associated Artery/Lesion type: [place] artery [place] vs. transplanted heart: [place] heart Associated angina: without angina Qualified Code(s): I25.10 - Atherosclerotic heart disease of [place] coronary artery without angina pectoris Internal Medicine - H&P: HPI Chief complaint: Bleeding from right lower extremity surgical site, indigestion Admitted From: Emergency Dept Plans for Post Hospital Care: Home History of present illness: Mr. Saab is a 61 year old male patient with a history of coronary artery disease, peripheral artery disease, who underwent right femoral to popliteal bypass with endarterectomy on 01/15/17 presented to the ER with complaints of bleeding from surgical site. He notices the sutures had given way and he was bleeding in his right thigh region. He also has been complaining of indigestion over the past several days but it has been getting worse since last night. He denies any shortness of breath. He denies any chest pain. Patient underwent cardiac catheterization last year and also coronary artery bypass grafting. During that episode of OR, he only had shortness of breath. He did not have any chest pain. This was done at [facility]. No lightheadedness or dizziness. He is otherwise feeling fine. Past Med Surg Social Fam HX - Past Medical History Attestation: Yes The following information was validated with the patient. Source: patient Medical history: myocardial infarction, hyperlipidemia, hypertension, thyroid disease, coronary artery disease, CHF Psychiatric history: no psych history - Past Surgical History Surgical History: angioplasty/stent, coronary bypass (CABG), other - Social History Smoking Status: Former smoker Smokeless Tobacco Status: No Alcohol use: heavy Drug use: none - Family History Mother Adopted: No Living Status: Internal Medicine - H&P: Meds Aspirin 81 mg PO DAILY 01/31/16 [History] Atorvastatin [Lipitor] 80 mg PO HS 01/31/16 [History] Levothyroxine [Synthroid] 25 mcg PO DAILY 01/31/16 [History] Carvedilol [Coreg] 25 mg PO BID 12/21/16 [History] Clopidogrel [Plavix] 75 mg PO DAILY 12/21/16 [History] Lisinopril [Zestril] 10 mg PO DAILY 12/21/16 [History] Carvedilol 12.5 mg PO BID 01/15/17 [History] Multivitamin [Multi-Day Vitamins] 1 each PO DAILY 01/15/17 [History] HYDROcodone/Acet 5/325 mg [[place] 5-325 mg] 1 tab PO Q6HR PRN #10 tablet [Rx] Allergies No Known Allergies Allergy (Verified 01/15/17 07:26) All Systems PM: A 10-system review of systems was performed and is negative for pertinent findings except as documented above in the HPI. - Constitutional Constitutional: no chills, no fever(s), no night sweats - EENT Eyes: no change in vision, no discharge, no pain, no photophobia Ears: no ear discharge, no ear pain, no tinnitus Nose, mouth and throat: no dysphagia, no nasal discharge, no neck pain, no sore throat - Cardiovascular Cardiovascular ROS IM: no chest pain, no diaphoresis, no dyspnea, no lightheadedness, no palpitations, no syncope - Respiratory Respiratory: no cough, no dyspnea, no wheezing, no excessive phlegm production - Gastrointestinal Gastrointestinal: other (Indigestion), no abdominal pain, no diarrhea, no hematemesis, no hematochezia, no melena, no nausea, no vomiting - Musculoskeletal Musculoskeletal ROS IM: no numbness, no tingling - Integumentary Integumentary IM: no rash, no unusual bruising - Neurological Neurological ROS: no confusion, no convulsions, no focal weakness, no numbness, no tingling, no tremor(s) - Hematologic/Lymphatic Hematologic/Lymphatic: no easy bruising - Constitutional Vitals: Temp Pulse Resp BP Pulse Ox 98.4 F 101 18 156/57 95 01/19/17 04:02 01/19/17 07:14 01/19/17 07:14 01/19/17 07:14 01/19/17 07:14 General appearance: Present: cooperative, mild distress, A&O X 3, pleasant, answers questions appropriately - Eye Eye exam: Present: EOMI, PERRL, conjuntiva pink, sclera anicteric - Neck Neck exam general surgery: Present: supple, trachea midline. Absent: lymphadenopathy - Respiratory Respiratory exam: Present: CTAB. Absent: accessory muscle use, rales, rhonchi, wheezes - Cardiovascular Cardiovascular exam: Present: RRR, +S1, +S2. Absent: diastolic murmur, gallop, rubs, systolic murmur - GI/Abdominal GI/Abdominal exam: Present: normal bowel sounds, soft, no peritoneal signs. Absent: distended, tenderness - Extremities Exam Extremities exam: Present: warm, radial pulses palpable and symetrical. Absent : calf tenderness, cyanotic, pedal edema Additional comments: Right lower extremity bleeding present at right medial thigh region at the surgical site. Sutures have been placed in the ER and currently the wound is bandaged at this site. - Neurological Exam Neurological exam: Present: alert, oriented X3, no focal deficits. Absent: facial droop, speech deficit - Psychiatric Psychiatric exam: Present: normal affect, normal mood - Skin Skin exam: Present: dry, intact Internal Med - H&P Results - Labs CBC & Chem 7: 01/19/17 05:32 01/19/17 05:32 Labs: Short CBC 01/19/17 Range/Units 05:32 WBC 12.0 H (4.3-11.1) K/mcL Hgb 8.0 L (12.9-16.9) g/dL Hct 24.3 L (37.5-50.1) % Plt Count 249 (140-400) K/mcL Neutrophils # 8.1 (1.6-8.9) K/mcL BMP 01/19/17 05:32 Sodium 137 Potassium 5.0 H Chloride 102 Carbon Dioxide 27 BUN 30 H Creatinine 1.44 H Glucose 122 H Calcium 10.8 Cardiac Enzymes 01/19/17 Range/Units 05:32 Troponin I 2.11 H* (0-0.03) ng/mL Liver Function 01/19/17 Range/Units 05:32 Total Bilirubin 0.7 (0.2-1.2) mg/dL AST 29 (5-34) Units/L ALT 12 (0-55) Units/L Alkaline Phosphatase 71 (38-126) Units/L Albumin 3.6 (3.5-5.0) g/dL - EKG Data -: EKG Interpreted by Myself EKG shows normal: sinus rhythm - EKG Data When compared to previous EKG: there are significant changes Interpretation IM: ischemic changes EKG comments: 01/19/17 08:29 ST depression noted in the lateral leads, T-wave inversion in aVL and slight ST elevation in lead III - Impressions ITS Impressions Chest X-Ray 01/19/17 06:16 IMPRESSION: No acute cardiopulmonary disease. Blunting of the left CP angle likely on the basis of pleural thickening. D/ / 01/19/2017 08:07:47 Carter Mayfield MD / tien Interpreting Provider: Carter Mayfield MD - Attending Attestation This document has been at least partially created by [employer] recognition technology by Dr. Gamboa. Errors in grammar, wording or other phrases may exist. If errors are found after the documentation is signed, they will be addressed individually in the addendum section of this document when appropriate.
[2017-01-19] MEDS ORDERED: *HR* HYDROcodone/Acet 5/325 mg TABLET PO PRN (08:32)
[2017-01-19 08:55] LABS: Magnesium 1.9 mg/dL (1.6-2.6)
--- NOTE | 2017-01-19 09:08 | Cardiology Consult Note ---
Date of Encounter: 01/19/17 Time of Encounter: 09:02 Assessment and Plan (1) Demand ischemia of myocardium Current Visit: Yes Status: Acute Troponin elevation is most consistent with demand ischemia in the setting of acute blood loss anemia (Hgb 12.7 pre-op, now 7.8), elevated blood pressure, and renal insufficiency. I do not feel that he has plaque-rupture ACS. After my evaluation of the patient in the ED, I instructed the ED RN to stop his heparin gtt. Recommend continuing aspirin, plavix, atorvastatin, coreg, and lisinopril. Would also start hydralazine 25mg PO TID for better BP control. Would strongly consider blood transfusion to keep Hgb closer to 10. TTE has been ordered. We will follow-up after the TTE and make additional recommendations. (2) Coronary artery disease Current Visit: No Status: Chronic See plan above under demand ischemia. Qualifiers: Coronary Disease-Associated Artery/Lesion type: elem artery [place] vs. transplanted heart: elem heart Associated angina: without angina Qualified Code(s): I25.10 - Atherosclerotic heart disease of [place] coronary artery without angina pectoris (3) PAD (peripheral artery disease) Current Visit: Yes Status: Chronic D/c heparin gtt. Needs vascular surgery consult. Vascular surgery to decide if he needs CT scan or other imaging to assess for internal bleeding. (4) HTN (hypertension) Current Visit: Yes Status: Chronic Continue home doses of coreg and lisinopril. Start hydralazine 25mg PO TID. Continue to closely monitor. Qualifiers: Hypertension type: essential hypertension Qualified Code(s): I10 - Essential (primary) hypertension Discussion w patient/family: The assessment and plan as outlined above was discussed with the patient and/or family members who expressed understanding and agreement. All questions were answered. Thank you for involving us in the care of your patient. Please call with any questions. History of Present Illness Consult date: 01/19/17 Requesting physician: Yudy Lange Consult reason: elevated troponin Chief complaint: bleeding at surgical site History of present illness: Mr. Saab is a 61 year old male with history of CAD s/p STEMI in 11/2015 s/p SABA to LCx, CABG x 1 (CLEMONS-LAD) in 12/2015, ischemic cardiomyopathy (LVEF 20%, which improved to 40-45% after revascularization), HTN, CKD, and peripheral artery disease s/p vascular surgery (right femoral-popliteal bypass graft, right common femoral artery endarterectomy, right above-knee popliteal artery endarterectomy, and right below the knee popliteal artery endarterectomy) 4 days ago. He presented to the ED this morning with complaints of bleeding at his vascular surgery incision site, dizziness, and indigestion. He reports that indigestion has been occurring for weeks and has been taking tums. He reports R-sided chest pain when he lies down to sleep on his right side. He otherwise denies any chest pain. He reports that his symptom with his prior MT and stent was severe shortness of breath. He denies any shortness of breath or chest pain at this time. Cardiology has been consulted due to elevated troponin (2.11, 2.19). Past Med Surg Social Fam HX - Past Medical History Medical history: cardiomyopathy, CHF, coronary artery disease, hyperlipidemia, hypertension, myocardial infarction, peripheral artery disease, renal disease, thyroid disease Psychiatric history: no psych history - Past Surgical History Surgical History: angioplasty/stent, coronary bypass (CABG), other - Social History Smoking Status: Former smoker Smokeless Tobacco Status: No Alcohol use: heavy Drug use: none - Family History Mother Adopted: No Living Status: Medications and Allergies Aspirin 81 mg PO DAILY 01/31/16 [History] Atorvastatin [Lipitor] 80 mg PO HS 01/31/16 [History] Levothyroxine [Synthroid] 25 mcg PO DAILY 01/31/16 [History] Carvedilol [Coreg] 25 mg PO BID 12/21/16 [History] Clopidogrel [Plavix] 75 mg PO DAILY 12/21/16 [History] Lisinopril [Zestril] 10 mg PO DAILY 12/21/16 [History] Carvedilol 12.5 mg PO BID 01/15/17 [History] Multivitamin [Multi-Day Vitamins] 1 each PO DAILY 01/15/17 [History] HYDROcodone/Acet 5/325 mg [[place] 5-325 mg] 1 tab PO Q6HR PRN #10 tablet [Rx] Allergies No Known Allergies Allergy (Verified 01/15/17 07:26) All Systems Review: A 10-system review of systems was performed and is negative for pertinent findings except as documented above in the HPI. Physical Examination Vital Signs, Last 4 Hours Resp BP 01/19/17 08:36 16 134/92 General: Conversant, No Apparent Distress HEENT: Atraumatic, Normocephaly, Mucus Membranes Moist Neck: No JVD, Normal carotid pulses, Other Cardiac: Reg Rate and Rhythm, Normal S1 and S2, No Murmur Lungs: Normal Breath Sounds, No Wheeze, Rales, Rhonchi Neuro: Alert and responsive, No focal deficits noted Abdomen: Soft, Non-Tender Skin: No rashes noted on visualized skin, Other Extremities: No Clubbing, No Cyanosis, Normal Pulses, Other (trace edema in bilateral lower extremities) Results 01/19/17 08:12 01/19/17 05:32 - Imaging and Cardiology Chest Xray: report reviewed (sinus tachycardia (104 bpm), moderate IVCD, probable LVH with repolarization abnormalities, inferior MT (age undetermined). No significant changes from prior ECG.) - EKG Interpretation EKG results cardiology: personally reviewed Consult Discharge Plan - Plan Referrals: Jaida Morel, [facility] [Primary Care Provider] -
[2017-01-19 09:37] LABS: Hemoglobin A1C 5.5 %
[2017-01-19] MEDS: Aspirin 81 MG TAB.CHEW PO SCH (09:54)
[2017-01-19] MEDS: Levothyroxine 25 MCG TABLET PO SCH (09:56)
[2017-01-19] MEDS: hydrALAZINE 25 MG TABLET PO SCH ×2 (14:59→23:32)
[2017-01-19] MEDS ORDERED: Perflutren Lipid Microsphere 1.3 ML in 0.9 % Sodium Chloride 8.7 ML IVP ONE (14:59)
[2017-01-19] MEDS: *HR* Heparin 5,000 UNIT/ML VIAL SQ SCH (17:34)
--- NOTE | 2017-01-19 18:31 | Vascular/Endovas Progress Note ---
Date of Encounter: 01/19/17 Time of Encounter: 13:05 - Assessment and plan (1) Postoperative anemia due to acute blood loss Current Visit: Yes Status: Acute The patient has chronic anemia with acute expected postoperative blood loss anemia. His hemoglobin was noted to be 12.7 a week before surgery and 8.3 on postoperative day #1. His hemoglobin was 7.8 this morning and is not signifcantly different than his postoperative value. He clinically has no evidence of ongoing blood loss at his incisions. He has no hematoma. He is hemodynamically stable. No further imaging is indicated at this ankush. May recheck another hemoglobin tomorrow. (2) PAD (peripheral artery disease) Current Visit: Yes Status: Chronic (3) HTN (hypertension) Current Visit: Yes Status: Chronic Qualifiers: Hypertension type: essential hypertension Qualified Code(s): I10 - Essential (primary) hypertension (4) Coronary artery disease Current Visit: No Status: Chronic Qualifiers: Coronary Disease-Associated Artery/Lesion type: [place] artery [place] vs. transplanted heart: [place] heart Associated angina: without angina Qualified Code(s): I25.10 - Atherosclerotic heart disease of [place] coronary artery without angina pectoris (5) Status post femoropopliteal bypass surgery Current Visit: Yes Status: Chronic His incisions are healing. He has some serous drainage from one vein harvest site. Continue with dry bandage as needed. Persistent serous drainage may require a FERNANDO dressing. No signs or symptoms of infection. - Subjective Interval history: The patient recently underwent a right femoral to popliteal artery bypass with saphenous vein. He presented today with elevated troponins and was admitted for further evaluation. He was seen by cardiology and an acute coronary syndrome was ruled out. The patient has serous drainage from a right thigh vein harvest site and reported had a suture placed in the ER. The patient is also anemic. He currently is alert and comfortble without complaints. He denies chest pain or shortness of breath. Vital Signs, Last 4 Hours Temp Pulse Resp BP Pulse Ox 01/19/17 17:15 99.0 F 18 146/83 97 01/19/17 16:59 98.2 F 102 16 155/74 98 01/19/17 14:41 86 - Physical Examination General: Present: Conversant, No Apparent Distress HEENT: Present: Pupils equal Cardiac: Present: Reg Rate and Rhythm Lungs: Present: Normal Breath Sounds Neuro: Present: Alert and responsive, No focal deficits noted Vascular: Present: Normal capillary refill, Surgical incisions (incisions clean , dry and intact, serous drainage noted from a medial thigh vein harvest site, no erythema, no hematoma, no fluctuance). Absent: Cyanosis, Edema Abdomen: Present: Soft, Non-tender Skin: Present: No rashes noted on visualized skin, Other (expected postoperative ecchymosis noted at the right thigh.) Results 01/19/17 08:12 01/19/17 05:32 Lab Results, Last 24 hours 01/19/17 17:42 Troponin I 1.90 H* Consult Discharge Plan - Plan Referrals: Jaida Morel, NAYA [Primary Care Provider] -
--- NOTE | 2017-01-19 19:33 | ECHO - Doppler Report ---
Echo with Saline and Imaging Enhancement Agent Name: Chago Saab Date of Study: 01/19/2017 Date: 1955 Ht: 70.0 in Medical Record#: [id number] Age: 61 Wt: 218.0 lb Gender: Male BSA: 2.17 Order #: [id number] Location: [facility] Room #: 2N08 Reading Physician: Luis Pope MD, [facility] Tablet Repair: Chloe Tejada Ordering Physician: Estrella Gamboa MD Primary Physician: Jaida Morel CNP Indications: ACS Impressions: Technically sub-optimal due to poor echocardiographic windows. Mild LV systolic dysfunction, estimated LVEF 45%. The basal-mid inferior wall appears hypokinetic, but is not well visualized due to poor image quality. Mild concentric left ventricular hypertrophy. Normal right ventricular size and function. Aneurysmal interatrial septum. Agitated saline contrast study was attempted, but was poor in quality. Cannot assess for intracardiac shunting on this study. No significant valvular dysfunction. Unable to estimate RVSP due to lack of TR jet. Left Ventricular Wall Motion: Rest Echo Findings The mid inferior and basal inferior barreto were hypokinetic. All other wall segments showed normal motion. Findings: Study Quality * Technically sub-optimal due to poor echocardiographic windows. ECG Findings * Normal sinus rhythm. Left Ventricle * Mild LV systolic dysfunction, estimated LVEF 45%. The basal-mid inferior wall appears hypokinetic, but is not well visualized due to poor image quality. * Normal LV chamber size. * Mild concentric left ventricular hypertrophy. * Indeterminate diastolic function. Right Ventricle * Normal right ventricular size and function. Left Atrium * Normal left atrial size. Right Atrium * Normal right atrial size. Interatrial Septum * Aneurysmal interatrial septum. * Agitated saline contrast study was attempted, but was poor in quality. Cannot assess for intracardiac shunting on this study. Aorta * Normally sized aortic root. Pericardium * There is no pericardial effusion present. IVC * The IVC is not dilated. Aortic Valve * Aortic valve not well visualized. Appears mildly sclerotic. * No aortic stenosis. * No aortic regurgitation. Mitral Valve * Normal mitral valve structure. * No mitral stenosis. * Trace mitral regurgitation. Tricuspid Valve * Tricuspid valve not well visualized. * No tricuspid stenosis. * Trace tricuspid regurgitation. * Unable to estimate RVSP due to lack of TR jet. Pulmonic Valve * Pulmonic valve not well visualized. * No pulmonic stenosis. * Trace pulmonic regurgitation. History Hypertension Hypercholesteremia Family History of CAD History of CAD/PTCA Myocardial Infarction Coronary Artery Bypass Graft Congestive Heart Failure Contrast: Definity 1.3 ml in 8.7 ml of saline 10 ml. Measurements: BP: 165/ 85 2D Normal Values RVIDd: 3.80 cm IVSd: 1.30 cm 0.6 - 1.0 cm LVIDd: 4.90 cm 3.7 - 5.6 cm LVPWd: 1.20 cm 0.6 - 1.1 cm LVIDs: 3.50 cm 1.5 - 3.6 cm AO: 3.70 cm < 4.0 cm LA volume: 40 Updated by Luis Pope MD, [facility] on 01/19/2017 7:23:01 PM electronically signed on 01/19/2017 7:26:57 PM with status of Final Wall Motion [place]: 1=Normal, 2=Hypokinesis, 3=Akinesis, 4=Dyskinesis, 5=Aneurysmal, 6=Hyperkinetic, X=Not Visualized (Blank)=Missing
[2017-01-20 04:29] LABS: Basophils % 0.4 %; Eosinophils # 0.3 K/mcL (0.0-0.6); Eosinophils % 3.2 %; Hematocrit 23.5 % (37.5-50.1); INR 1.2; Immature Granulocytes % 0.4 % (0-4); Lymphocytes # 2.9 K/mcL (0.6-4.6); Lymphocytes % 28.3 %; Mean Corpuscular Hemoglobin 30.8 pg (28.0-33.3); Mean Corpuscular Volume 90.4 fL (83.0-100.0); Mean Platelet Volume 10.3 fL (9.4-12.4); Monocytes # 1.1 K/mcL (0.0-1.3); Monocytes % 11.1 %; Neutrophils # 5.7 K/mcL (1.6-8.9); Platelet Count 217 K/mcL (140-400); Prothrombin Time 12.9 Seconds (9.4-12.1); Red Cell Distribution Width 14.4 % (11.5-14.5); Segmented Neutrophils % 56.6 %
[2017-01-20 04:32] LABS: Activated Partial Thrombo Time 25.4 Seconds (26.0-36.0)
[2017-01-20 04:40] LABS: BUN/Creatinine Ratio 22 (6-26); Blood Urea Nitrogen 27 mg/dL (8-26); Carbon Dioxide 24 mEq/L (19-29); Chloride 104 mEq/L (98-109); Glucose 110 mg/dL (70-99); Osmolality,Calculated 292 (280-300); Potassium 4.2 mEq/L (3.5-4.5); Sodium 138 mEq/L (136-145); eGFR For African Americans > 60 (> 60); eGFR For Non-African Americans 60 (> 60)
[2017-01-20 04:42] LABS: Calcium 9.1 mg/dL (8.6-10.8)
[2017-01-20 04:44] LABS: Chol/HDL Ratio 4.2 (0-4.9)
[2017-01-20] MEDS: *HR* Heparin 5,000 UNIT/ML VIAL SQ SCH (06:08)
[2017-01-20] MEDS: hydrALAZINE 25 MG TABLET PO SCH (07:45)
[2017-01-20] MEDS: Aspirin 81 MG TAB.CHEW PO SCH (07:46)
[2017-01-20] MEDS: Levothyroxine 25 MCG TABLET PO SCH (07:46)
--- NOTE | 2017-01-20 12:42 | Cardiology Progress Note ---
Date of Encounter: 01/20/17 Time of Encounter: 12:00 Assessment and Plan (1) Postoperative anemia due to acute blood loss Current Visit: Yes Status: Acute Per cardiology: -Patient with acute blood loss after vascular surgery. -Hemoglobin today 8. -Receiving blood transfusion. -Management per primary and vascular surgery services. (2) Demand ischemia of myocardium Current Visit: Yes Status: Acute Per cardiology: -Troponin elevation is most consistent with demand ischemia in the setting of acute blood loss anemia (Hgb 12.7 pre-op, now 7.8), elevated blood pressure, and renal insufficiency. -Troponns 2.11, 2.19, 1.9. Troponins flat and adynamic. - Recommend continuing aspirin, plavix, atorvastatin, hydralazine, coreg, and lisinopril. -Echocardiogram 01/19/17 with LVEF 45%, mild concentric left ventricular hypertrophy, aneurysmal interatrial septum, no significant valvular dysfunction , mid inferior barreto hypokinetic, all other barreto with normal motion. -EF at [facility] 40-45% previously. -Patient denies chest pain, denies shortness of breath. -Cardiology will sign off and will follow up in outpatient setting. Follow up set. (3) HTN (hypertension) Current Visit: Yes Status: Chronic Per cardiology: -On nargis inhibitor, beta ame, and hydralazine. -Most recent BPs 100-110s systolic. -Of note, BPs 160s systolic on admission. -Continue to monitor in outpatient setting. Qualifiers: Hypertension type: essential hypertension Qualified Code(s): I10 - Essential (primary) hypertension (4) PAD (peripheral artery disease) Current Visit: Yes Status: Chronic Per cardiology: -[place] PAD. -Recent vascular surgery. -Management per primary and vascular services. (5) Coronary artery disease Current Visit: No Status: Chronic Per cardiology: -[place] CAD with STEMI November 2015 with PCI with SABA to circumflex. Per notes reviewed, had 95% LAD lesion, not addressed with PCI, but however underwent CABG x1 with CLEMONS to LAD. -On asa, statin, plavix, beta ame, nargis inhibitor. -Denies chest pain or shortness of breath. Denies increased fatigue. -Troponins flat and adynamic in the setting of acute blood loss anemia. -Cardiology will continue to follow in outpatient setting. Qualifiers: Coronary Disease-Associated Artery/Lesion type: [place] artery [place] vs. transplanted heart: [place] heart Associated angina: without angina Qualified Code(s): I25.10 - Atherosclerotic heart disease of [place] coronary artery without angina pectoris Discussion w patient/family: The assessment and plan as outlined above was discussed with the patient and/or family members who expressed understanding and agreement. All questions were answered. Thank you for involving us in the care of your patient. Please call with any questions. Patient seen and examined with NAYA Crenshaw by NAYA Law. Discussed and reviewed with . Subjective Principal diagnosis: Acute blood loss anemia Interval history: Mr. Saab is a 61 year old male with history of CAD s/p STEMI in 11/2015 s/p SABA to LCx, CABG x 1 (CLEMONS-LAD) in 12/2015, ischemic cardiomyopathy (LVEF 20%, which improved to 40-45% after revascularization), HTN, CKD, and peripheral artery disease s/p vascular surgery (right femoral-popliteal bypass graft, right common femoral artery endarterectomy, right above-knee popliteal artery endarterectomy, and right below the knee popliteal artery endarterectomy) 4 days ago. He presented to the ED this morning with complaints of bleeding at his vascular surgery incision site, dizziness, and ringing in ears. He reports R -sided chest pain when he lies down to sleep on his right side. He otherwise denies any chest pain. He reports that his symptom with his prior MT and stent was severe shortness of breath. He denies any shortness of breath or chest pain at this time. Cardiology has been consulted due to elevated troponin. Patient denies chest pain over night. Patient denies shortness of breath. Objective Vital Signs, Last 4 Hours Temp Pulse Resp BP Pulse Ox 01/20/17 12:00 98.5 F 72 16 114/58 01/20/17 11:47 98.2 F 75 16 108/64 97 01/20/17 11:34 75 97 01/20/17 11:31 98.2 F 79 16 108/64 97 General: Conversant, No Apparent Distress HEENT: Atraumatic, Normocephaly, Mucus Membranes Moist Neck: No JVD, Normal carotid pulses Cardiac: Reg Rate and Rhythm, Normal S1 and S2, No Murmur Lungs: Normal Breath Sounds, No Wheeze, Rales, Rhonchi Neuro: Alert and responsive, No focal deficits noted Abdomen: Soft, Non-Tender Skin: No rashes noted on visualized skin, Other (Right leg incisions well aproximated. ) Musculoskeletal: No Chest Wall Tenderness Extremities: No Clubbing, No Cyanosis, No Edema, Other (1+ bilateral pedal pulses. ) Results 01/20/17 04:00 01/20/17 04:00 Lab Results Active Medications Acetaminophen/Hydrocodone Bitart ([place] 5-325 Mg) 1 tab PO Q6HR PRN PRN Reason: Moderate Pain Stop: 07/21/17 08:33 Aspirin (Aspirin) 81 mg PO DAILY [facility] Stop: 07/21/17 09:01 Last Admin: 01/20/17 07:46 Dose: 81 mg Atorvastatin Calcium (Lipitor) 80 mg PO HS [facility] Stop: 07/21/17 21:01 Last Admin: 01/19/17 21:52 Dose: 80 mg Carvedilol (Coreg) 37.5 mg PO BID [facility] PRN Reason: Protocol Stop: 07/21/17 09:01 Last Admin: 01/20/17 07:46 Dose: 37.5 mg Clopidogrel Bisulfate (Plavix) 75 mg PO DAILY [facility] Stop: 07/21/17 09:01 Last Admin: 01/20/17 07:46 Dose: 75 mg Heparin Sodium (Porcine) (Heparin) 5,000 unit SQ Q12HCO [facility] Stop: 07/21/17 18:01 Last Admin: 01/20/17 06:08 Dose: 5,000 unit Hydralazine HCl (Hydralazine) 25 mg PO Q8HR [facility] Stop: 07/21/17 16:01 Last Admin: 01/20/17 07:45 Dose: 25 mg Levothyroxine Sodium (Synthroid) 25 mcg PO DAILY [facility] Stop: 07/21/17 09:01 Last Admin: 01/20/17 07:46 Dose: 25 mcg Lisinopril (Zestril) 10 mg PO DAILY [facility] PRN Reason: Protocol Stop: 07/21/17 09:01 Last Admin: 01/20/17 07:46 Dose: 10 mg Metoprolol Tartrate (Lopressor) 5 mg IVP Q6HR PRN PRN Reason: SEE COMMENTS Stop: 07/21/17 07:27 - Imaging and Cardiology Chest Xray: report reviewed Echo: report reviewed - EKG Interpretation EKG results cardiology: personally reviewed (ECG with sinus rhythm, HR 99. Diffuse T wave inversion noted, this is unchanged from previous ECG.), other ( Telemetry reviewed with average HR 79, sinus rhythm. PACs noted.) Consult Discharge Plan - Plan Referrals: Jaida Morel, NAYA [Primary Care Provider] -
[2017-01-20 14:28] VITALS: BP 119/52
[2017-01-20 15:06] LABS: Hematocrit 25.5 % (37.5-50.1); Hemoglobin 8.9 g/dL (12.9-16.9)
--- NOTE | 2017-01-20 15:35 | Discharge Summary ---
Date of Encounter: 01/20/17 Time of Encounter: 15:00 - Discharge Diagnosis (1) HTN (hypertension) Priority: Secondary Status: Chronic Qualifiers: Hypertension type: essential hypertension Qualified Code(s): I10 - Essential (primary) hypertension (2) Status post femoropopliteal bypass surgery Priority: Primary Status: Chronic (3) Demand ischemia of myocardium Priority: Primary Status: Acute (4) Postoperative anemia due to acute blood loss Priority: Primary Status: Acute - Discharge Medications Home Medications: RX: Aspirin 81 mg PO DAILY 01/31/16 [History] RX: Atorvastatin [Lipitor] 80 mg PO HS 01/31/16 [History] RX: Levothyroxine [Synthroid] 25 mcg PO DAILY 01/31/16 [History] RX: Clopidogrel [Plavix] 75 mg PO DAILY 12/21/16 [History] RX: Lisinopril [Zestril] 10 mg PO DAILY 12/21/16 [History] RX: Carvedilol 37.5 mg PO BID 01/15/17 [History] RX: Multivitamin [Multi-Day Vitamins] 1 tab PO DAILY 01/15/17 [History] RX: HYDROcodone/Acet 5/325 mg [[place] 5-325 mg] 1 tab PO Q6HR PRN #10 tablet [Rx] RX: Gabapentin [Neurontin] 300 mg PO TID 01/19/17 [History] Allergies/Adverse Reactions: Allergies No Known Allergies Allergy (Verified 01/15/17 07:26) Procedures/tests Complete & Pending: Procedures Performed prior 72 hours Category Date Time Status EV echocardiogram w enhance Routine Y 01/19/17 07:26 Completed Date of admission: 01/19/17 08:26 Primary care physician: Jaida Morel Discharging clinician: Balta Rasmussen Anticipated date of discharge: 01/20/17 - Patient Status Disposition: Home, Self-Care Condition: Good Overall status at discharge: patient is back to baseline - Discharge Instructions Instructions: Myocardial Infarction (DC), Heart Healthy Diet (DC) Follow Up With: Jaida Morel CNP [Primary Care Provider] - 01/23/17 2:30 pm Pierre Barbour MD [Partnered Physician] - 02/06/17 9:45 am Additional Instructions: Follow-up appointments: If there is not an appointment listed below, please call your physician and schedule a follow-up appointment. If you have congestive heart failure and your symptoms return, make an appointment with your physician. Medication List: Carry an up to date list of medications you are taking at all time. We have given you an updated medication list including any new medications that you have been prescribed. Please provide that list to your primary provider Symptoms: If your condition changes or you experience any of the following symptoms, notify your physician immediately: Unusual or worsening pain, fever, persistent nausea and vomiting, bleeding, increase in swelling (especially in your legs), sudden weight gain, extreme dizziness, chest pain, increased drainage or redness from a wound or incision. Go to the emergency department if you experience a problem with breathing. Weights: If you have a history of swelling or shortness of breath, weigh yourself daily and notify your physician if you have a weight gain of two or more pounds in one day or 5 or more pounds in a week. If you experience any of the warning signs for stroke: Sudden numbness or weakness of the face, arm or leg; especially on one side of the body, sudden confusion, trouble speaking or understanding, sudden trouble seeing in one or both eyes, sudden trouble walking, dizziness, loss of balance or coordination, sudden sever headache with no cause; Call 911 or go to the emergency room. Stroke is a medical emergency. Some risk factors for stroke: Age, cigarette smoking, diabetes, excessive alcohol consumption, family history , high blood pressure, overweight, physical inactivity, prior stroke, heart attack, diagnosis of carotid artery stenosis or other artery disease. If you smoke, STOP: Smoking or tobacco use significantly increases your risk of heart and lung disease. Your chance of disease greatly increases if you continue to smoke. For more information, call the [place] tobacco quit line for smoking cessation QUIT-NOW ( ) - Diet and Activity Activity: increase activity as tolerated Diet: low fat, low cholesterol, low salt diet Interval History: Mr. Saab is a 61 year old male patient with a history of coronary artery disease, peripheral artery disease, who underwent right femoral to popliteal bypass with endarterectomy on 01/15/17 presented to the ER with complaints of bleeding from surgical site. He notices the sutures had given way and he was bleeding in his right thigh region. He also has been complaining of indigestion over the past several days but it has been getting worse since last night. He denies any shortness of breath. He denies any chest pain. Patient underwent cardiac catheterization last year and also coronary artery bypass grafting. During that episode of HI, he only had shortness of breath. He did not have any chest pain. This was done at [facility]. Hospital course: Mr. Saab is a 61 year old male admitted for femoral bypass site bleeding. he was also found elevated troponin in the emergency room. Vascular surgery consult was called and incision site checked by vascular surgery. No active bleeding. He has low hemoglobin, PRBC transfusion was given. Cardiology consult for elevated troponin and consider demand ischemia. After transfusion, his hemoglobin level get up to 8.9. Patient denies chest pain or shortness of breath. Incision is well dressed and no active bleeding. We will discharge patient home and follow-up as outpatient. He was seen and examined today. He is a pleasant, awake alert, oriented 3. Vital signs stable. Denies chest pain or shortness of breath. Patient will discharge home and to follow up with vascular surgeon and cardiology as outpatient. - Time Spent with Patient Total time spent providing and/or coordinating discharge services: Greater than 30 minutes - Constitutional Vitals: Temp Pulse Resp BP Pulse Ox 98.3 F 82 16 119/52 98 01/20/17 15:10 01/20/17 15:10 01/20/17 15:10 01/20/17 15:10 01/20/17 15:10 General appearance: Present: cooperative, mild distress, A&O X 3, pleasant, answers questions appropriately - Head Head exam: Present: atraumatic, normocephalic - Eye Eye exam: Present: PERRL, conjuntiva pink, sclera anicteric Pupils: Present: PERRL - Neck Neck exam general surgery: Present: supple, trachea midline. Absent: lymphadenopathy - Respiratory Respiratory exam: Present: CTAB. Absent: accessory muscle use, rales, rhonchi, wheezes - Cardiovascular Cardiovascular exam: Present: RRR, +S1, +S2. Absent: diastolic murmur, gallop, rubs, systolic murmur - GI/Abdominal GI/Abdominal exam: Present: normal bowel sounds, soft, no peritoneal signs. Absent: distended, tenderness - Extremities Exam Extremities exam: Present: warm, radial pulses palpable and symetrical. Absent : calf tenderness, cyanotic, pedal edema - Neurological Exam Neurological exam: Present: CN II-XII intact, oriented X3, no focal deficits. Absent: pronater drift, facial droop, speech deficit - Skin Skin exam: Present: dry, intact
--- NOTE | 2017-01-20 17:48 | Electrocardiograph Report ---
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
--- NOTE | 2017-01-20 17:49 | Electrocardiograph Report ---
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
[2017-01-21 18:39] LABS: CK-BB (CK isoenzymes) 0 % (0-0); CK-MB (CK isoenzymes) 0 % (0-4); CK-MM (CK-isoenzymes) 100 % (96-100)
[2017-01-22 07:45] LABS: CK Total (Ck Isoenzymes) 248 U/L (20-200)
== END 2017-01-20 16:00 | disposition home or self-care (01) | DRG 791 ==
LOC: EMEROO 03:59 → 2NNU 08:26
PROVIDERS: ADMIT Internal Medicine; ATTEND Internal Medicine

== ENCOUNTER 2017-07-29 10:32 | Inpatient (IN) ==
[2017-07-29] MEDS ORDERED: Lidocaine -MPF 2% 5 ML VIAL ONE (10:54)
[2017-07-29] MEDS ORDERED: Heparin 1,000 UNITS/500 mL NS 500 ML ONE (10:54)
--- NOTE | 2017-07-29 10:55 | Anesthesia Evaluation PreOp ---
Date of Encounter: 07/29/17 Time of Encounter: 10:53 - Past History Planned Operation: Right CEA Cardiac History: MD (CAD s/p STEMI in 11/2015 s/p SABA to LCx, CABG x 1 ([facility] ) in 12/2015, ischemic cardiomyopathy (LVEF 20%, which improved to 40-45% after revascularization). NSTEMI secondary anemia 12/2016), CHF, HTN, Hyperlipidemia, Cardiac Surgery, Cardiac Stent, Other (Peripheral artery disease s/p vascular surgery 01/17: (right femoral-popliteal bypass graft, right common femoral artery endarterectomy, right above-knee popliteal artery endarterectomy, and right below the knee popliteal artery endarterectomy), Completely occluded left ICA,) Pulmonary History: Former smoker (Quit 12/2015), COPD TRANSITIONS MANAGER History: Denies Any Significant HX Other Medical History: Renal (CKD - Baseline Cr ~1.5), GERD (Uncontrolled), Other (Truncal obesity) Anesthesia History: No Prior Anesthetic Complications, Past Anesthesia Alcohol Use: heavy (6-12 beers/day), recent Drug use: none Medications and Allergies Aspirin 81 mg PO DAILY 01/31/16 [History] Atorvastatin [Lipitor] 80 mg PO HS 01/31/16 [History] Levothyroxine [Synthroid] 25 mcg PO DAILY 01/31/16 [History] Clopidogrel [Plavix] 75 mg PO DAILY 12/21/16 [History] Lisinopril [Zestril] 10 mg PO DAILY 12/21/16 [History] Carvedilol 37.5 mg PO BID 01/15/17 [History] Multivitamin [Multi-Day Vitamins] 1 tab PO DAILY 01/15/17 [History] 3 Allergy/AdvReac Type Severity Reaction Status Date / Time No Known Allergies Allergy Verified 01/15/17 07:26 - Meds/Allergy Pre-op Review Medications Reviewed: Yes Allergies Reviewed: Yes Beta Blockers on Current Med List: Yes If Beta Blockers taken, Date/Time (Last Dose taken): AM Anesthesia Results - Labs Laboratory Tests 07/15/17 07/15/17 07/15/17 08:21 08:21 08:21 Hgb 12.2 L Hct 35.8 L Plt Count 261 PT 11.2 INR 1.0 APTT 29.2 Sodium 138 Potassium 4.5 BUN 25 Creatinine 1.56 H Glucose 110 H Calcium 9.6 - Imaging EKG: report reviewed (07-16-2017 SINUS RHYTHM INFERIOR MYOCARDIAL INFARCTION, PROBABLY OLD MODERATE T-WAVE ABNORMALITY, CONSIDER LATERAL ISCHEMIA) Additional studies: Carotid Angio 07/19/2017: The Aortic arch is normal in appearance and free of obstructive disease. The Left internal carotid is occluded. The Left external carotid and right internal carotid have significant, flow limiting disease . There is a lesion present with 75% stenosis, in the Proximal Right Internal Carotid. The lesion has mild calcification present. There is non-significant disease in the cerebral vessels with significant right to left intracranial flow via the anterior communicating artery. Carotid Duplex 06/28/2017 The right internal carotid artery has an 80-99% stenosis. The left internal carotid artery is occluded. The right vertebral artery has a PSV of 66 cm/s and a EDV of 27 cm/s. The left vertebral artery has a PSV of 31 cm/s and a EDV of 7 cm/s. 2DE 01/19/2017: Mild LV systolic dysfunction, estimated LVEF 45%. The basal-mid inferior wall appears hypokinetic, but is not well visualized due to poor image quality. Mild concentric left ventricular hypertrophy. Normal right ventricular size and function. Aneurysmal interatrial septum. Anesthesia Exam Vital Signs/O2 Sat/Glucose, Most Recent Temp Pulse Resp BP Pulse Ox 97.9 F 75 18 173/82 97 07/29/17 10:53 07/29/17 10:53 07/29/17 10:53 07/29/17 10:53 07/29/17 10:53 Height: 71 in Weight: 100 Kg BMI: 31 NPO (# of Hours): >8 - HEENT Mallampati: II Teeth: Missing Oral Opening: Greater than 3 - TRANSITIONS MANAGER LOC: Oriented TRANSITIONS MANAGER Motor: Normal RUE, Normal LUE, Normal RLE, Normal LLE, Normal Face - Cardiac Rhythm: Regular - Pulmonary Breath Sounds: bilateral Clear Anesthesia Assess/Plan ASA Score: 4 Modified Chencho Scale for Level of Consciousness: Cooperative, oriented, and tranquil Anesthetic Plan: General Monitoring Plan: Standard Monitors, A-Line Recovery Plan: PACU Anes Supervising Prov Stmt: I have participated in the evaluation of this patient. Patient informed and consented. Risks, benefits, and alternatives discussed. Patient wishes to proceed.
[2017-07-29] MEDS ORDERED: Albuterol 2.5 MG/3 ML NEBULIZER IH ONE (10:58)
[2017-07-29] MEDS ORDERED: CeFAZolin Syr 2,000MG/20 ML 2,000 MG/20 ML SYRINGE IVPB ONE (10:58)
[2017-07-29] MEDS ORDERED: Ringers Solution, Lactated 1,000 ML IVC SCH (11:00)
[2017-07-29] MEDS ORDERED: Famotidine 20 MG/2 ML VIAL IVP ONE (11:26)
[2017-07-29] MEDS ORDERED: Plasma-Lyte A (PH 7.4) 1,000 ML IVC SCH (11:30)
[2017-07-29] MEDS ORDERED: Nitroglycerin 25 MG/250 ML INFUS..BTL IVC ONE (11:31)
[2017-07-29] MEDS ORDERED: NiCARdipine 2.5 MG/10 ML Syringe IVPB ONE (11:32)
[2017-07-29] MEDS ORDERED: *HR* Midazolam HCl 2 MG/2 ML VIAL ONE (11:34)
[2017-07-29] MEDS ORDERED: *HR* Propofol 200 MG/20 ML VIAL IVP ONE (11:34)
[2017-07-29] MEDS ORDERED: *HR* FentaNYL (PF) 100 MCG/2 ML VIAL ONE (11:34)
[2017-07-29] MEDS ORDERED: Lidocaine -MPF 2% 2 ML VIAL ONE (11:35)
[2017-07-29] MEDS ORDERED: *HR* Heparin 5,000 UNIT/ML VIAL ONE ×2 (11:35→15:27)
[2017-07-29] MEDS ORDERED: Dexamethasone 4 MG/ML VIAL ONE (11:35)
[2017-07-29] MEDS ORDERED: *HR* Succinylcholine 200 MG/10 ML VIAL IVP ONE (11:35)
[2017-07-29] MEDS ORDERED: Ondansetron 4 MG/2 ML VIAL ONE (11:35)
[2017-07-29] MEDS ORDERED: Lidocaine 1% 20 ML MDV ONE (11:46)
[2017-07-29] MEDS ORDERED: Heparin 1,000 UNITS/500 mL NS 1,000 ML ONE (11:46)
[2017-07-29] MEDS ORDERED: *HR* Phenylephrine 10 MG/ML VIAL ONE (11:54)
--- NOTE | 2017-07-29 12:31 | History & Physical Report ---
Date of Encounter: 07/29/17 Time of Encounter: 12:30 24 Hour HP Update - Instructions Instructions: If the History and Physical is less than 30 days old and was completed prior to A.M. admission and or procedure and has NOT been updated on calendar day of procedure please complete this update prior to performing procedure. - Update Patient reports changes in Medical Condition: No Changes in examination, assessment, or condition: No Changes in Medication: No Preop tests/diagnostics Reviewed: Yes Pre-Op MRSA Screen: Negative Surgery Remains Indicated: Yes Consent for Planned Operative Procedure(s) Verified: Yes - Pre-Operative Checklist Preoperative Checklist Indicated: Yes Prophylactic Antibiotic Ordered: Yes Home Medications Include Beta Jaciel: Yes Beta Jaciel Taken Today (Day of Surgery): Yes Beta Jaciel Taken Yesterday (Day Prior to Surgery): Yes Is VTE Prophylaxis Indicated?: Yes
[2017-07-29] MEDS ORDERED: *HR* HYDROmorphone 2 MG/ML SYRINGE ONE (13:21)
[2017-07-29] MEDS ORDERED: *HR* EPINEPHrine 1 MG/ML AMPUL ONE (13:52)
[2017-07-29] MEDS: Ringers Solution, Lactated 1,000 ML IVC SCH ×3 (14:01→23:39)
--- NOTE | 2017-07-29 15:31 | Anesthesia Procedures ---
Date of Encounter: 07/29/17 Time of Encounter: 14:45 Procedures: Anesthesia - Arterial Line Consent obtained: written consent Time out performed: Yes Sedation: Versed (mg): 1 Sedation: Fentanyl (mcg): 50 Local Anesthetic: Lidocaine 1% Amount of Anesthetic used (mls): 3 Size (Gauge): 20 Length (inches): 1 3/4 Technique Used: sterile prep, direct puncture technique (X2 attempts) Post-Procedure: line taped into place Patient tolerated procedure: well Complications: none Site: Radial L Comments: Ultrasound guided puncture, secondary to patient's history. Radial artery with significant atherosclerosis, and small lumen. Anes Supervising Prov Stmt: Patient hemodynamically stable. Patient tolerated procedure well.
[2017-07-29] MEDS ORDERED: *HR* HYDROmorphone (PF) 1 MG/ML SYRINGE IVP PRN (15:32)
[2017-07-29] MEDS ORDERED: *HR* Labetalol 20 MG/4 ML SYRINGE IVP PRN (15:32)
[2017-07-29] MEDS ORDERED: Protamine Sulfate 50 MG/5 ML VIAL IVP ONE (16:11)
--- NOTE | 2017-07-29 17:28 | Operative Note ---
Date of procedure: 07/29/17 Pre-op diagnosis: right carotid stenosis Post-op diagnosis: same Procedure: right carotid endarterectomy with Hemashield patch angioplasty and 8 Fr shunt Complications: none Anesthesia: ABBYA Surgeon: Pierre Barbour Estimated blood loss (cc): 250 Specimen: none Condition: stable Disposition: PACU Procedure in Detail: History Mr. Saab is a 61-year-old white male with a known history of peripheral vascular and cerebrovascular disease and coronary disease. He is status post a lower extremity bypass grafting earlier this year. He has known left internal carotid artery occlusion. He has a right carotid stenosis that is being followed as an outpatient. This demonstrated increasing velocities suggesting a worsening of the stenosis. As the left carotid was occluded and Silvana Zain was recommended. The patient was taken to the angiogram suite and carotid angiogram demonstrated a hemodynamically significant lesion of at least 80% in the right internal carotid artery. There was right to left filling through the [place] to the left hemisphere. Therefore the patient was recommended to undergo surgery today for the carotid endarterectomy. Procedure After informed consent was obtained the patient was taken to the operating room. General endotracheal anesthesia was established. A right neck preparation was then performed and sterilely prepped and draped. A timeout protocol was observed. An oblique incision was then made on the anterior border of the sternal cleidomastoid muscle. Dissection was carried down to the carotid sheath which was then opened. There were large amount of veins from the internal jugular and facial vein that was overlying the carotid bifurcation requiring an extended dissection and ligation of these numerous veins. After this was finally complete the dissection was carried down to the carotid artery which was then identified and selectively controlled. The hypoglossal nerve was identified and preserved as was the ansa cervicalis. 5000 units heparin was then administered intravenously. After 3 minutes delay the carotid artery with clamp beginning with the internal carotid. An 11 blade knife and Mcgarry's were used. The artery was opened. An 8 Albanian was then inserted atraumatically and patency was confirmed by the severe intraoperative Doppler. Inspection of the plaque revealed a very complex heterogeneous plaque with critical stenosis and multiple areas of ulceration. Plaque also extended proximally than depicted by the angiogram. This required extension of the arteriotomy more proximally as well. An endarterectomy plane was then established at the common carotid distally. This was then carried circumferentially and then carried proximally and distally. The superior thyroid and external carotid artery were endarterectomized. The endpoint on the internal carotid artery was smooth. No tacking sutures were necessary. Dissection carried proximally showed a very large amount of plaque present that was very thick and circumferential. A endpoint was created surgically. The bed of the vessels and inspected for any residual debris. The artery was then closed using a patch angioplasty of K[place]y. This was sewn in position using 2 6-0 Prolene sutures. Leaving a small space open on the suture line the shunt was clamped and divided and removed. The final few sutures were then placed. The internal was backbled and reclamped. The external and common were opened and finally the internal was reopened. There is excellent pulsation through the vessels and excellent Doppler signals identified. The patient had significant oozing however from the sutures of the patch as he is on both aspirin and Plavix due to his concomitant vascular diseases. Therefore a number of topical agents and intravenous protamine was necessary in order to control this oozing so that hemostasis was established so that it would be safe to close the wound. After this was done the wound was closed in layers using absorbable suture. A dry sterile dressing was applied. Superficial cervical block was performed using half percent Marcaine before closure of the wound. The patient was extubated in the operating room and found to be neurologically intact. He was then taken to the recovery room in stable condition.
[2017-07-29] MEDS ORDERED: *HR* Promethazine 25 MG/ML VIAL IVP PRN (17:32)
[2017-07-29] MEDS ORDERED: *HR* Promethazine 25 MG/ML VIAL ONE (17:33)
--- NOTE | 2017-07-29 19:35 | Anesthesia Evaluation Post Op ---
Date of Encounter: 07/29/17 Time of Encounter: 19:35 - Vital Signs Vital Signs: Last Vital Signs Temp 98.4 F 07/29/17 19:24 Pulse 81 07/29/17 19:24 Resp 16 07/29/17 19:24 BP 97/54 07/29/17 19:24 Pulse Ox 100 07/29/17 19:24 - Lungs Lungs: Clear Ascult./Percussion - Airway Airway: Non-obstructed - Cardiovascular Regular Rate - Mental Status Mental Status: Alert & Oriented, Answers Appropriately - Pain Pain Scale: 4 - Nausea Vomiting Nausea Vomiting: Not Present - Hydration Hydration: NPO - Discharge PostOp Status: Transfer Patient to floor (transfer to ICU due to phenylephrine infusion)
[2017-07-29 19:56] LABS: Hematocrit 30.4 % (37.5-50.1); Hemoglobin 10.2 g/dL (12.9-16.9)
[2017-07-29] MEDS ORDERED: Naloxone 0.4 MG/ML INJ IVP PRN (20:44)
[2017-07-29] MEDS ORDERED: *HR* Morphine 2 MG/ML SYRINGE IVP PRN ×2 (20:44)
[2017-07-29] MEDS ORDERED: Ondansetron 4 MG/2 ML VIAL IVP PRN (20:44)
[2017-07-29] MEDS: Phenylephrine 10 MG in D5% in Water 250 ML IVC SCH (21:41)
[2017-07-29] MEDS: CeFAZolin Premix DUPLEX 2,000 MG/50 ML BAG IVPB SCH (22:09)
[2017-07-29] MEDS ORDERED: Furosemide 20 MG/2 ML VIAL IVP ONE (22:50)
[2017-07-29] MEDS: 0.9 % Sodium Chloride 1,000 ML IVC SCH (23:44)
[2017-07-30 00:22] LABS: Albumin 3.2 g/dL (3.5-5.0); Albumin/Globulin Ratio 1.1 (1.1-2.2); Bilirubin,Total 0.4 mg/dL (0.2-1.2); Calcium 9.3 mg/dL (8.6-10.8); Globulin 2.8 g/dL (2.4-3.5); Potassium 4.9 mEq/L (3.5-4.5)
--- NOTE | 2017-07-30 01:16 | Internal Medicine Consult Note ---
Date of Encounter: 07/29/17 Time of Encounter: 23:00 - Assessment and Plan (1) Acute kidney injury Current Visit: Yes Status: Acute Assessment and plan: 1. Will continue IVF and monitor urine output. 2. Will trend chemistries and renal function. 3. I discontinued his lisinopril. 4. If renal function does not improve and worsens, will need nephrology consult in the morning. (2) CAD (coronary artery disease) Current Visit: Yes Status: Chronic Assessment and plan: 1. Continue home meds as appropriate. 2. Patient has no symptoms of angina. 3. Will check EKG and follow clinically. 4. Continue ASA and Plavix. Qualifiers: Coronary Disease-Associated Artery/Lesion type: [place] artery [place] vs. transplanted heart: [place] heart Associated angina: without angina Qualified Code(s): I25.10 - Atherosclerotic heart disease of [place] coronary artery without angina pectoris (3) Hypothyroidism Current Visit: Yes Status: Acute Assessment and plan: 1. Will check TSH. Qualifiers: Hypothyroidism type: unspecified Qualified Code(s): E03.9 - Hypothyroidism , unspecified (4) DVT prophylaxis Current Visit: Yes Status: Acute Assessment and plan: 1. EPCD's per Dr. Barbour. Internal Medicine - CN: HPI - Data of Consult Patient: new to practice Consult date: 07/29/17 Requesting Physician: MD Everett Mccrary MD - Consult Narrative History of present illness: Mr. Saab is a 61 year old male who underwent carotid endarterectomy today per Dr. Barbour. He was noted to have significant hypotension in PACU today after surgery. He received some IV fluids and some pressors to bring up his blood pressure. He was then moved to the intensive care unit for closer monitoring. He is not on any pressors presently and his blood pressure is stable and he is comfortable. Dr. Meneses requested a hospitalist consultation for blood pressure and medical management. Upon my assessment of the patient, he is awake and in no distress. He denies any chest pain or shortness of breath. He feels well and complains of being thirsty. I canceled his Lasix that was ordered and requested that his IV fluids be continued as he appears clinically dry. He did take his morning medications this morning before surgery, including his lisinopril. I did order some STAT labs and noticed that he has acute kidney injury and hyperkalemia now. Past Med Surg Social Fam HX - Past Medical History Attestation: Yes The following information was validated with the patient. Source: patient, old records reviewed Medical history: cardiomyopathy, CHF, coronary artery disease, hyperlipidemia, hypertension, myocardial infarction, peripheral artery disease, renal disease, thyroid disease Psychiatric history: no psych history - Past Surgical History Surgical History: angioplasty/stent, coronary bypass (CABG), other - Social History Smoking Status: Former smoker Smokeless Tobacco Status: No Alcohol use: heavy (6-12 beers/day), recent Drug use: none Current living situation: Home, With Family Activity Level: Independent ambulation Recent Out of Country Travel Within the Last 8 Weeks: No - Family History Mother Adopted: No Living Status: - Constitutional Constitutional: no chills, no fever(s) - EENT Eyes: no change in vision - Cardiovascular Cardiovascular ROS IM: no chest pain, no dyspnea, no edema - Respiratory Respiratory: no cough, no dyspnea, no hemoptysis - Gastrointestinal Gastrointestinal: no diarrhea, no nausea, no vomiting - Genitourinary Genitourinary ROS male: no dysuria, no hematuria - Musculoskeletal Musculoskeletal ROS IM: no arthralgias, no back pain - Integumentary Integumentary IM: no rash, no jaundice - Neurological Neurological ROS: no focal weakness, no headache(s) - Psychiatric Psychiatric: no anxiety, no depression - Endocrine Endocrine IM: no polydipsia, no polyuria - Allergic/Immunologic Allergic/Immunologic: no GI upset with certain foods Internal Medicine - CN: Meds Aspirin 81 mg PO DAILY 01/31/16 [History] Atorvastatin [Lipitor] 80 mg PO HS 01/31/16 [History] Levothyroxine [Synthroid] 25 mcg PO DAILY 01/31/16 [History] Clopidogrel [Plavix] 75 mg PO DAILY 12/21/16 [History] Lisinopril [Zestril] 10 mg PO DAILY 12/21/16 [History] Carvedilol 37.5 mg PO BID 01/15/17 [History] Multivitamin [Multi-Day Vitamins] 1 tab PO DAILY 01/15/17 [History] 3 Allergy/AdvReac Type Severity Reaction Status Date / Time No Known Allergies Allergy Verified 07/29/17 11:43 Internal Medicine - CN: Exam - Constitutional Vitals: Temp Pulse Resp BP Pulse Ox 97.7 F 71 20 104/44 98 07/30/17 00:00 07/30/17 01:00 07/30/17 01:00 07/30/17 01:00 07/30/17 01:00 General appearance IM: Present: cooperative, A&O X 3, pleasant, no acute distress - Head Head exam: Present: atraumatic, normal inspection - Eye Eye exam: Present: EOMI, normal appearance, PERRL. Absent: scleral icterus Pupils: Present: normal accommodation - ENT ENT exam: Present: mucous membranes dry, normal exam - Neck Neck exam general surgery: Present: trachea midline Additional comments: right neck are clean and dressed - Respiratory Respiratory exam: Present: CTAB. Absent: chest wall tenderness, rales, respiratory distress, rhonchi, wheezes - Cardiovascular Cardiovascular exam IM: Present: RRR, +S1, +S2. Absent: diastolic murmur, systolic murmur - GI/Abdominal GI/Abdominal exam IM: Present: normal bowel sounds, soft. Absent: hepatomegaly , splenomegaly, tenderness - Extremities Exam Extremities exam IM: Present: normal capillary refill, warm, radial pulses palpable and symmetrical. Absent: calf tenderness, pedal edema, tenderness - Back Exam Back exam: Absent: CVA tenderness (L), CVA tenderness (R) - Neurological Exam Neurological exam: Present: alert, CN II-XII intact, oriented X3, no focal deficits - Psychiatric Psychiatric exam: Present: normal affect, normal mood - Skin Skin exam IM: Present: dry, warm. Absent: rash Internal Medicine - CN: Reslt - Labs CBC & Chem 7: 07/29/17 19:42 07/29/17 23:50 Labs: Short CBC 07/29/17 Range/Units 19:42 Hgb 10.2 L (12.9-16.9) g/dL Hct 30.4 L (37.5-50.1) % BMP 07/29/17 23:50 Sodium 134 L Potassium 4.9 H Chloride 103 Carbon Dioxide 20 BUN 29 H Creatinine 1.97 H Glucose 137 H Calcium 9.3 Liver Function 07/29/17 Range/Units 23:50 Total Bilirubin 0.4 (0.2-1.2) mg/dL AST 17 (5-34) Units/L ALT 18 (0-55) Units/L Alkaline Phosphatase 73 (38-126) Units/L Albumin 3.2 L (3.5-5.0) g/dL Consult Discharge Plan - Plan Referrals: Jaida Morel CNP [Primary Care Provider] - 08/05/17 8:30 am () Pierre Barbour MD [Partnered Physician] - 08/21/17 9:30 am
[2017-07-30 04:42] LABS: Basophils % 0.1 %; Hematocrit 26.8 % (37.5-50.1); Hemoglobin 8.9 g/dL (12.9-16.9); Immature Granulocytes % 0.3 % (0-4); Lymphocytes # 1.2 K/mcL (0.6-4.6); Lymphocytes % 10.3 %; Mean Corpuscular HGB Conc 33.2 g/dL (31.6-35.5); Mean Corpuscular Hemoglobin 30.9 pg (28.0-33.3); Mean Corpuscular Volume 93.1 fL (83.0-100.0); Mean Platelet Volume 10.3 fL (9.4-12.4); Monocytes # 0.9 K/mcL (0.0-1.3); Monocytes % 7.6 %; Neutrophils # 9.8 K/mcL (1.6-8.9); Platelet Count 205 K/mcL (140-400); Red Blood Count 2.88 M/mcL (4.19-5.50); Red Cell Distribution Width 13.5 % (11.5-14.5); Segmented Neutrophils % 81.7 %
[2017-07-30 04:58] LABS: Albumin/Globulin Ratio 1.1 (1.1-2.2); Bilirubin,Total 0.3 mg/dL (0.2-1.2); Calcium 8.6 mg/dL (8.6-10.8); Globulin 2.8 g/dL (2.4-3.5); Magnesium 1.6 mg/dL (1.6-2.6); Potassium 4.8 mEq/L (3.5-4.5); Total Protein 5.8 g/dL (6.0-8.3)
[2017-07-30 05:21] LABS: Thyroid Stimulating Hormone 1.938 mcIU/mL (0.350-4.840)
[2017-07-30] MEDS: CeFAZolin Premix DUPLEX 2,000 MG/50 ML BAG IVPB SCH ×2 (05:26→16:29)
[2017-07-30] MEDS: 0.9 % Sodium Chloride 1,000 ML IVC SCH ×3 (07:43→20:34)
[2017-07-30] MEDS: Aspirin 81 MG TAB.CHEW PO SCH (07:47)
[2017-07-30] MEDS: Multivit/Ca/Min/Fe/FA 1 TAB TABLET PO SCH (07:48)
--- NOTE | 2017-07-30 08:17 | Vascular/Endovas Progress Note ---
Date of Encounter: 07/30/17 Time of Encounter: 08:14 - Assessment and plan (1) CKD (chronic kidney disease) stage 3, GFR 30-59 ml/min Current Visit: Yes Status: Chronic Patient under medical management (2) Carotid artery occlusion Current Visit: Yes Status: Chronic Patient has a known left internal carotid artery occlusion. The patient has high -grade stenosis of the right internal carotid artery. The patient underwent a right carotid endarterectomy yesterday. The patient had perioperative hypotension thought secondary to sinus nerve activation. This has resolved with observation and IV fluid. The patient is neurologically intact and hemodynamically stable this morning in the intensive care unit on vasoactive drips. The patient will be mobilized today up to the chair and then up walking. Pending his response to this therapy the patient making discharged later today. Qualifiers: Laterality: left Qualified Code(s): I65.22 - Occlusion and stenosis of left carotid artery (3) Postoperative anemia due to acute blood loss Current Visit: Yes Status: Acute Patient had perioperative increased blood loss due to his taking of aspirin and Plavix. These antiplatelet agents could not be stopped around the time of surgery and so therefore had increased blood loss due to that. Using symptomatic from this process and no transfusions will be ordered. - Subjective Interval history: Patient is a 61-year-old white male who underwent a right carotid endarterectomy yesterday. In the recovery room he was noted to have persistent hypotension that required use of vasoactive drugs. Because of this transfer to the intensive care unit was recommended. By the time the patient came to the intensive care unit however the vasoactive drugs could be discontinued and he was maintained just on IV fluids. He otherwise had an uneventful night. This morning of postoperative day #1 he is awake and alert. He is comfortable. He has no complaints. He is able to swallow without difficulty. His vital signs are stable and his blood pressure is normal. Vital Signs, Last 4 Hours Pulse Resp BP Pulse Ox 07/30/17 07:56 61 07/30/17 07:00 71 20 139/54 97 07/30/17 06:00 62 14 125/47 100 07/30/17 05:00 66 12 118/48 99 - Physical Examination General: Present: Conversant, No Apparent Distress, Well developed, Well nourished HEENT: Present: Atraumatic, Normocephaly, Trachea midline Neck: Absent: JVD Cardiac: Present: Reg Rate and Rhythm, Normal S1 and S2 Lungs: Present: Normal Breath Sounds, No Wheeze, Rales, Rhonchi Neuro: Present: Alert and responsive, No focal deficits noted, Cranial nerves grossly intact, Motor nerves grossly intact, Sensory nerves grossly intact Vascular: Present: Surgical incisions (Patient has a dry dressing on the right neck.) Abdomen: Present: Soft - VTE Documentation of Mechanical Device: Intermittent pneumatic compression device Results 07/30/17 04:20 07/30/17 04:20 Lab Results, Last 24 hours 07/29/17 07/29/17 07/30/17 19:42 23:50 04:20 WBC 12.0 H Hgb 10.2 L 8.9 L Hct 30.4 L 26.8 L Plt Count 205 Sodium 134 L Potassium 4.9 H Chloride 103 Carbon Dioxide 20 BUN 29 H Creatinine 1.97 H Glucose 137 H Calcium 9.3 Magnesium Total Bilirubin 0.4 AST 17 ALT 18 Alkaline Phosphatase 73 TSH 07/30/17 04:20 WBC Hgb Hct Plt Count Sodium 134 L Potassium 4.8 H Chloride 104 Carbon Dioxide 21 BUN 30 H Creatinine 1.82 H Glucose 130 H Calcium 8.6 Magnesium 1.6 Total Bilirubin 0.3 AST 20 ALT 16 Alkaline Phosphatase 69 TSH 1.938 Consult Discharge Plan - Plan Referrals: Jaida Morel CNP [Primary Care Provider] - 08/05/17 8:30 am () Pierre Barbour MD [Partnered Physician] - 08/21/17 9:30 am
[2017-07-30] MEDS ORDERED: Levothyroxine 25 MCG TABLET PO SCH (09:00)
--- NOTE | 2017-07-30 14:12 | Internal Med Progress Note ---
Date of Encounter: 07/30/17 Time of Encounter: 11:40 - Assessment and plan (1) Acute kidney injury superimposed on CKD Current Visit: Yes Status: Acute Assessment and plan: Acute kidney injury on chronic kidney disease stage III - likely due to hypotension - now slowly improving Continue IV fluids, monitor urine output, labs in a.m. Avoid nephrotoxic agents - Lisinopril has been held at this time Nephrology consult if renal function worsens (2) Carotid artery occlusion Current Visit: Yes Status: Chronic Assessment and plan: Right internal carotid artery high-grade stenosis - status post right carotid endarterectomy - postop day #1 Patient also has left internal carotid artery occlusion Continue Aspirin, Plavix, Lipitor Vascular surgery Dr. Barbour following Patient did have some postoperative anemia secondary to blood loss Qualifiers: Laterality: left Qualified Code(s): I65.22 - Occlusion and stenosis of left carotid artery (3) HTN (hypertension) Current Visit: No Status: Chronic Assessment and plan: Essential hypertension, controlled, monitor - initial hypotension has now resolved Continue home dose of Coreg when blood pressure is stable Qualifiers: Hypertension type: essential hypertension Qualified Code(s): I10 - Essential (primary) hypertension (4) CAD (coronary artery disease) Current Visit: Yes Status: Chronic Assessment and plan: Coronary artery disease status post CABG and stents - stable - patient is asymptomatic Continue Aspirin, Plavix, Lipitor EKG - pending Qualifiers: Coronary Disease-Associated Artery/Lesion type: [place] artery [place] vs. transplanted heart: [place] heart Associated angina: without angina Qualified Code(s): I25.10 - Atherosclerotic heart disease of [place] coronary artery without angina pectoris (5) Hypothyroidism Current Visit: Yes Status: Chronic Assessment and plan: Continue home dose of Synthroid Qualifiers: Hypothyroidism type: unspecified Qualified Code(s): E03.9 - Hypothyroidism , unspecified (6) DVT prophylaxis Current Visit: Yes Status: Acute Assessment and plan: Continue SCDs, ambulate - Time Spent With Patient 25 - 35 minutes - Subjective Interval history: Examined this morning. Patient is awake and alert. Not in any distress. Sitting up comfortably. Tolerating oral diet. Denies chest pain or shortness of breath. No fever. Hemodynamically stable. Initial hypotension has now resolved. Patient will be ambulated. No acute events or complaints. Patient underwent right carotid endarterectomy yesterday. He had persistent hypotension postoperatively and required vasopressors. He was then transferred to the ICU. Now he seems to be back to baseline. - Constitutional Vitals: Temp Pulse Resp BP Pulse Ox 97.7 F 69 18 116/55 100 07/30/17 12:00 07/30/17 12:00 07/30/17 12:00 07/30/17 12:00 07/30/17 12:00 General appearance: Present: cooperative, A&O X 3, pleasant, no acute distress, answers questions appropriately - Head Head exam: Present: atraumatic - Eye Eye exam: Present: EOMI - ENT ENT exam: Present: mucous membranes moist - Neck Additional comments: Patient has a dry dressing on the right neck - Respiratory Respiratory exam: Present: CTAB. Absent: accessory muscle use, chest wall tenderness, rales, rhonchi, wheezes, tachypnea - Cardiovascular Cardiovascular exam: Present: RRR, +S1, +S2 - GI/Abdominal GI/Abdominal exam: Present: soft. Absent: distended, firm, guarding, tenderness - Extremities Exam Extremities exam: Present: radial pulses palpable and symmetrical. Absent: calf tenderness, cyanotic, pedal edema - Neurological Exam Neurological exam: Present: alert, oriented X3, no focal deficits. Absent: facial droop, speech deficit Internal Medicine: Result - Labs CBC & Chem 7: 07/30/17 04:20 07/30/17 04:20 Labs: Short CBC 07/29/17 07/30/17 Range/Units 19:42 04:20 WBC 12.0 H (4.3-11.1) K/mcL Hgb 10.2 L 8.9 L (12.9-16.9) g/dL Hct 30.4 L 26.8 L (37.5-50.1) % Plt Count 205 (140-400) K/mcL Neutrophils # 9.8 H (1.6-8.9) K/mcL BMP 07/29/17 07/30/17 23:50 04:20 Sodium 134 L 134 L Potassium 4.9 H 4.8 H Chloride 103 104 Carbon Dioxide 20 21 BUN 29 H 30 H Creatinine 1.97 H 1.82 H Glucose 137 H 130 H Calcium 9.3 8.6 Liver Function 07/29/17 07/30/17 Range/Units 23:50 04:20 Total Bilirubin 0.4 0.3 (0.2-1.2) mg/dL AST 17 20 (5-34) Units/L ALT 18 16 (0-55) Units/L Alkaline Phosphatase 73 69 (38-126) Units/L Albumin 3.2 L 3.0 L (3.5-5.0) g/dL - VTE Documentation of Mechanical Device: Intermittent pneumatic compression device Consult Discharge Plan - Plan Referrals: Jaida Morel CNP [Primary Care Provider] - 08/05/17 8:30 am () Pierre Barbour MD [Partnered Physician] - 08/21/17 9:30 am
[2017-07-30] MEDS: *HR* HYDROcodone/Acet 5/325 mg TABLET PO PRN ×2 (15:00→20:40)
[2017-07-30] MEDS: Ringers Solution, Lactated 1,000 ML IVC SCH (20:34)
[2017-07-30] MEDS: Phenylephrine 10 MG in D5% in Water 250 ML IVC SCH (20:34)
--- NOTE | 2017-07-30 20:38 | Event Note ---
Date of Encounter: 07/30/17 Time of Encounter: 20:37 The patient has been hemodynamically stable but when ambulating had some dizziness and some blurred vision. This is a ongoing and chronic problem for the patient. However because of the pressure fluctuations yesterday I opted to observe the patient for another night. The patient will then remained in the hospital tonight and I anticipate if he is stable he will be able to be discharged tomorrow morning. This was reviewed with the patient which is agreeable to him.
[2017-07-31 06:07] LABS: Basophils # 0.1 K/mcL (0.0-0.2); Basophils % 0.5 %; Eosinophils # 0.2 K/mcL (0.0-0.6); Eosinophils % 1.4 %; Hematocrit 25.5 % (37.5-50.1); Hemoglobin 8.5 g/dL (12.9-16.9); Immature Granulocytes % 0.4 % (0-4); Lymphocytes # 2.7 K/mcL (0.6-4.6); Lymphocytes % 25.9 %; Mean Corpuscular HGB Conc 33.3 g/dL (31.6-35.5); Mean Corpuscular Volume 93.1 fL (83.0-100.0); Mean Platelet Volume 10.2 fL (9.4-12.4); Monocytes % 9.8 %; Neutrophils # 6.6 K/mcL (1.6-8.9); Platelet Count 192 K/mcL (140-400); Red Blood Count 2.74 M/mcL (4.19-5.50)
[2017-07-31 06:19] LABS: BUN/Creatinine Ratio 18 (6-26); Blood Urea Nitrogen 24 mg/dL (8-26); Calcium 8.8 mg/dL (8.6-10.8); Carbon Dioxide 26 mEq/L (19-29); Chloride 107 mEq/L (98-109); Glucose 101 mg/dL (70-99); Osmolality,Calculated 292 (280-300); Sodium 139 mEq/L (136-145); eGFR For African Americans > 60 (> 60); eGFR For Non-African Americans 54 (> 60)
[2017-07-31] MEDS ORDERED: Levothyroxine 25 MCG TABLET PO SCH (06:30)
[2017-07-31] MEDS: 0.9 % Sodium Chloride 1,000 ML IVC SCH (07:27)
[2017-07-31] MEDS: Multivit/Ca/Min/Fe/FA 1 TAB TABLET PO SCH (08:10)
[2017-07-31] MEDS: Aspirin 81 MG TAB.CHEW PO SCH (08:10)
[2017-07-31 08:16] VITALS: BP 138/59
--- NOTE | 2017-07-31 08:44 | Discharge Summary ---
Date of Encounter: 07/31/17 Time of Encounter: 08:41 - Discharge Diagnosis (1) CKD (chronic kidney disease) stage 3, GFR 30-59 ml/min Priority: Secondary Status: Chronic Comments: Patient has chronic kidney disease under medical management. (2) Carotid artery occlusion Priority: Primary Status: Chronic Comments: Patient has chronic left internal carotid artery occlusion with high-grade right internal carotid artery stenosis. Qualifiers: Laterality: left Qualified Code(s): I65.22 - Occlusion and stenosis of left carotid artery (3) Postoperative anemia due to acute blood loss Priority: Secondary Status: Acute Comments: Patient had postoperative anemia. He is asymptomatic. - Discharge Medications Prescriptions: HYDROcodone/Acet 5/325 mg [[place] 5-325 mg] 1 tab PO Q6H PRN #10 tab PRN Reason: Pain Home Medications: Aspirin 81 mg PO DAILY 01/31/16 [History] Atorvastatin [Lipitor] 80 mg PO HS 01/31/16 [History] Levothyroxine [Synthroid] 25 mcg PO DAILY 01/31/16 [History] Clopidogrel [Plavix] 75 mg PO DAILY 12/21/16 [History] Lisinopril [Zestril] 10 mg PO DAILY 12/21/16 [History] Carvedilol 37.5 mg PO BID 01/15/17 [History] Multivitamin [Multi-Day Vitamins] 1 tab PO DAILY 01/15/17 [History] HYDROcodone/Acet 5/325 mg [[place] 5-325 mg] 1 tab PO Q6H PRN #10 tab 07/31/17 [Rx ] Allergies/Adverse Reactions: 3 Allergy/AdvReac Type Severity Reaction Status Date / Time No Known Allergies Allergy Verified 07/29/17 11:43 Procedures/tests Complete & Pending: Procedures Performed prior 72 hours Category Date Time Status ECG 12 lead ECG [ECG] Stat Y 07/29/17 23:22 Completed Date of admission: 07/29/17 20:07 Primary care physician: Jaida Morel Consults: 07/29/17 21:09 Consult to Hospitalist [CONS] Routine Consulting Provider: Hospitalist Liz Reason for Consult: Pt may need central line placement during the hs. Time Notified: 21:13 Call Completed: Yes Procedure(s) Performed: Right carotid endarterectomy with patch angioplasty Discharging clinician: Pierre Barbour Anticipated date of discharge: 07/31/17 - Patient Status Disposition: Home, Self-Care Condition: Good Functional capacity at discharge: independent ambulation Overall status at discharge: patient is progressing back to baseline - Discharge Instructions Follow Up With: Jaida Morel CNP [Primary Care Provider] - 08/05/17 8:30 am () Pierre Barbour MD [Partnered Physician] - 08/21/17 9:30 am Additional Instructions: Keep right neck dry for total of 5 days following surgery. Use ice pack on right neck for 3 days after discharge. Patient is to ambulate both inside and outside. Patient may use stairs when necessary. Patient is not to drive for 2 weeks following surgery. Patient is to resume usual home medications. Patient is to avoid any manual laborer heading not to lift greater than 10 pounds. - Diet and Activity Activity: increase activity as tolerated Diet: advance to your usual diet - Hospital Course Hospital course: Mr. Saab is a 61 year old male With known left internal carotid artery occlusion. He had worsening stenosis right internal carotid artery. The patient was admitted for right carotid endarterectomy. The patient experienced asymptomatic postoperative hypotension due to baroreceptor effect. He required transfer to the intensive care unit for pressor support. He responded to intravenous fluid and observation. He was felt fit for discharge on postoperative day #2. Instructions regards to his diet and exercise and medications and wound care or given to the patient prior to discharge. - Time Spent with Patient Total time spent providing and/or coordinating discharge services: Exam Vital Signs, Last 4 Hours Pulse Resp BP Pulse Ox 07/31/17 08:14 73 17 138/59 94 07/31/17 07:00 60 16 140/62 94 07/31/17 06:00 68 12 147/66 General: Present: Conversant, No Apparent Distress, Well developed, Well nourished HEENT: Present: Atraumatic, Trachea midline Neck: Absent: JVD Cardiac: Present: Reg Rate and Rhythm, Normal S1 and S2 Lungs: Present: Normal Breath Sounds Neuro: Present: Alert and responsive, No focal deficits noted, Cranial nerves grossly intact, Motor nerves grossly intact, Sensory nerves grossly intact Vascular: Present: Surgical incisions (Right neck incision is clean and dry.) - VTE Documentation of Mechanical Device: Intermittent pneumatic compression device
--- NOTE | 2017-07-31 16:02 | Electrocardiograph Report ---
[address] [place] [address] Test Date: 2017-07-29 Pat Name: Chago Saab Department: 101 Room: [facility] Gender: M Rn Document Improvement: : 1955 Requested By: Pierre Barbour Order Number: [id number] Reading MD: Jag Rodriguez MD Measurements Intervals [place] Rate: 87 P: 40 WI: 197 QRS: 30 QRSD: 112 T: 156 QT: 378 QTc: 423 Interpretive Statements SINUS RHYTHM INFERIOR MYOCARDIAL INFARCTION, PROBABLY OLD LATERAL ISCHEMIA Electronically Signed On 07-31-2017 16:01:31 EST by Jag Rodriguez MD
--- NOTE | 2017-07-31 16:09 | Electrocardiograph Report ---
[address] [place] [address] Test Date: 2017-07-29 Pat Name: Chago Saab Department: 109 Room: [facility] Gender: M Medical Assembly: : 1955 Requested By: Dong Valiente Order Number: [id number] Reading MD: Jag Rodriguez MD Measurements Intervals [place] Rate: 63 P: 34 MT: 218 QRS: 29 QRSD: 110 T: 151 QT: 427 QTc: 435 Interpretive Statements SINUS RHYTHM WITH FIRST DEGREE AV BLOCK INFERIOR MYOCARDIAL INFARCTION, OF INDETERMINATE AGE lateral ischemia Electronically Signed On 07-31-2017 16:07:42 EST by Jag Rodriguez MD
== END 2017-07-31 10:33 | disposition home or self-care (01) | DRG 24 ==
LOC: SAMDAY 10:32 → ICNU 20:07
PROVIDERS: ADMIT Surgery Vascular Surgery; ATTEND Surgery Vascular Surgery

== ENCOUNTER 2019-02-24 06:06 | Inpatient (IN) ==
[2019-02-24] MEDS ORDERED: CeFAZolin Syr 2,000MG/20 ML 2,000 MG/20 ML SYRINGE IVPB ONE (06:24)
[2019-02-24] MEDS ORDERED: Ringers Solution, Lactated 1,000 ML IVC SCH (06:30)
[2019-02-24] MEDS ORDERED: LIDOCAINE 1% PF 2 ML AMPUL ONE (06:40)
--- NOTE | 2019-02-24 06:58 | Anesthesia Evaluation PreOp ---
Date of Encounter: 02/24/19 Time of Encounter: 06:55 - Past History Planned Operation: Right Carotid Endarterectomy Cardiac History: [place] (STEMI November 2015), HTN, Hyperlipidemia, Cardiac Surgery (01/06), Cardiac Stent (x2 PCI with SABA to circumflex, stent # 2 place post last CEA), Other (PAD, CAD, Ischemic Cardiomyopathy) Pulmonary History: Former smoker [employer] History: Denies Any Significant HX Other Medical History: Renal (CRD), Thyroid (Hypo), GERD Anesthesia History: No Prior Anesthetic Complications, Past Anesthesia (R- Fem- Pop, R- CEA 08/09, L- Iliac stent) Alcohol Use: heavy (6-12 beers/day), recent Drug use: none Medications and Allergies Aspirin 81 mg PO DAILY 01/31/16 [History] Atorvastatin [Lipitor] 80 mg PO HS 01/31/16 [History] Levothyroxine [Synthroid] 25 mcg PO DAILY 01/31/16 [History] Clopidogrel [Plavix] 75 mg PO DAILY 12/21/16 [History] Lisinopril [Zestril] 10 mg PO DAILY 12/21/16 [History] Carvedilol 37.5 mg PO BID 01/15/17 [History] Multivitamin [Multi-Day Vitamins] 1 tab PO DAILY 01/15/17 [History] Gabapentin [Gralise] 300 mg PO TID 02/17/19 [History] Allergy/AdvReac Type Severity Reaction Status Date / Time No Known Allergies Allergy Verified 07/29/17 11:43 - Meds/Allergy Pre-op Review Medications Reviewed: Yes Allergies Reviewed: Yes Beta Blockers on Current Med List: No If Beta Blockers taken, Date/Time (Last Dose taken): 25 mg Coreg 05:00 today Anesthesia Results - Labs Laboratory Tests 01/19/17 02/05/19 02/05/19 05:32 08:29 08:29 WBC 7.7 Hgb 12.4 L Hct 36.7 L Plt Count 266 INR 1.0 Sodium Potassium Chloride Carbon Dioxide BUN Creatinine Hemoglobin A1c 5.5 02/05/19 08:29 WBC Hgb Hct Plt Count INR Sodium 134 L Potassium 4.1 Chloride 96 L Carbon Dioxide 26 BUN 18 Creatinine 1.37 H Hemoglobin A1c - Imaging EKG: report reviewed (SINUS RHYTHM OLD INFERIOR MYOCARDIAL INFARCTION, MODERATE T-WAVE ABNORMALITY, CONSIDER LATERAL ISCHEMIA Electronically Signed On 02-05-2019 22:12:13 EDT by Leonel Xavier) Additional studies: Echo with Saline and Imaging Enhancement Agent Name: Chago Saab Date of Study: 01/19/2017 Impressions: Technically sub-optimal due to poor echocardiographic windows. Mild LV systolic dysfunction, estimated LVEF 45%. The basal-mid inferior wall appears hypokinetic, but is not well visualized due to poor image quality. Mild concentric left ventricular hypertrophy. Normal right ventricular size and function. Aneurysmal interatrial septum. Agitated saline contrast study was attempted, but was poor in quality. Cannot assess for intracardiac shunting on this study. No significant valvular dysfunction. Unable to estimate RVSP due to lack of TR jet. Anesthesia Exam O2 Sat Height 1.78 m Height 1.78 m Weight 103.419 kg Weight 103.419 kg O2 Sat by Pulse Oximetry 97 O2 Sat by Pulse Oximetry 97 Vital Signs Temp Pulse Resp BP Pulse Ox 98.0 F 70 18 189/86 97 02/24/19 06:34 02/24/19 06:34 02/24/19 06:34 02/24/19 06:34 02/24/19 06:34 NPO (# of Hours): > 8 hrs Pain Scale: 0 Pain Scale Used: Numeric (1 - 10) - HEENT Pupil (Motor): Pupils equal, EOMI Mallampati: II Teeth: Missing Oral Opening: Greater than 3 - WATER [employer] LOC: Oriented [employer] Motor: Normal RUE, Normal LUE, Normal RLE, Normal LLE, Normal Face [employer] Sensory: Normal: RUE, LUE, RLE, LLE, Face - Cardiac Rhythm: Regular Murmur: None JVD: No Carotid Bruit: No - Pulmonary Breath Sounds: bilateral Clear Respiratory Effort: Symmetrical - Additional Findings did not stop meds Anesthesia Assess/Plan ASA Score: 4 Level of consciousness: Cooperative Anesthetic Plan: General Autologous Blood: Yes Monitoring Plan: Standard Monitors, A-Line Recovery Plan: PACU
[2019-02-24] MEDS ORDERED: *HR* Rocuronium Bromide 50 MG/5 ML VIAL ONE (07:08)
[2019-02-24] MEDS ORDERED: Lidocaine -MPF 4% 5 ML AMPUL ONE (07:08)
[2019-02-24] MEDS ORDERED: Lidocaine -MPF 2% 2 ML VIAL ONE ×3 (07:08→12:32)
[2019-02-24] MEDS ORDERED: *HR* Remifentanil 2 MG VIAL IVP ONE (07:08)
[2019-02-24] MEDS ORDERED: *HR* Propofol 200 MG/20 ML VIAL IVP ONE ×2 (07:08)
[2019-02-24] MEDS ORDERED: *HR* FentaNYL (PF) 100 MCG/2 ML VIAL ONE (07:08)
[2019-02-24] MEDS ORDERED: *HR* Phenylephrine 10 MG/ML VIAL ONE ×2 (07:10→10:59)
[2019-02-24] MEDS ORDERED: Ondansetron 4 MG/2 ML VIAL ONE (07:10)
[2019-02-24] MEDS ORDERED: Dexamethasone 4 MG/ML VIAL ONE (07:10)
[2019-02-24] MEDS ORDERED: Heparin 1,000 UNITS/500 mL 500 ML ONE ×2 (07:12→07:24)
[2019-02-24] MEDS ORDERED: *HR* Promethazine 25 MG/ML VIAL IVP PRN (07:19)
[2019-02-24] MEDS ORDERED: *HR* Labetalol 20 MG/4 ML SYRINGE IVP PRN ×2 (07:19→14:38)
[2019-02-24] MEDS ORDERED: *HR* HYDROmorphone (PF) 1 MG/ML SYRINGE IVP PRN (07:19)
[2019-02-24] MEDS ORDERED: Ondansetron 4 MG/2 ML VIAL IVP ONE (07:19)
[2019-02-24] MEDS ORDERED: *HR* OxyCODONE Immed Rel 5 MG TABLET PO PRN (07:19)
[2019-02-24] MEDS ORDERED: NiCARdipine 2.5 MG/10 ML Syringe IVPB ONE (07:20)
[2019-02-24] MEDS ORDERED: Protamine Sulfate 50 MG/5 ML VIAL IVP ONE (07:24)
[2019-02-24] MEDS ORDERED: Lidocaine 1% 20 ML MDV ONE (07:30)
--- NOTE | 2019-02-24 07:31 | History & Physical Report ---
Date of Encounter: 02/24/19 Time of Encounter: 07:25 24 Hour HP Update - Instructions Instructions: If the History and Physical is less than 30 days old and was completed prior to A.M. admission and or procedure and has NOT been updated on calendar day of procedure please complete this update prior to performing procedure. - Update Patient reports changes in Medical Condition: No Changes in examination, assessment, or condition: No Changes in Medication: No Preop tests/diagnostics Reviewed: Yes Surgery Remains Indicated: Yes Consent for Planned Operative Procedure(s) Verified: Yes - Pre-Operative Checklist Preoperative Checklist Indicated: Yes Prophylactic Antibiotic Ordered: Yes Home Medications Include Beta Jaciel: Yes Beta Jaciel Taken Today (Day of Surgery): Yes Beta Jaciel Taken Yesterday (Day Prior to Surgery): Yes Is VTE Prophylaxis Indicated?: Yes
[2019-02-24] MEDS ORDERED: ceFAZolin 1,000 MG, Sodium Chloride IRRigation 1,000 ML IR ONE (07:45)
[2019-02-24] MEDS ORDERED: *HR* Heparin 5,000 UNIT/ML VIAL ONE (08:17)
[2019-02-24] MEDS ORDERED: EPHEDrine 50 MG/ML VIAL ONE ×2 (08:17→11:00)
[2019-02-24] MEDS ORDERED: *HR* Labetalol 20 MG/4 ML SYRINGE IVP ONE (12:13)
[2019-02-24] MEDS ORDERED: Neostigmine Methylsulfate 3 MG/3 ML SYRINGE ONE (12:13)
[2019-02-24] MEDS ORDERED: SUGAMMADEX SODIUM 500 MG/5 ML VIAL IV ONE (12:37)
--- NOTE | 2019-02-24 12:49 | Operative Note ---
Date of procedure: 02/24/19 Pre-op diagnosis: recurrent right carotid stenosis Post-op diagnosis: same Procedure: redo right carotid endarterectomy with 10 Fr shunt and patch angioplasty Complications: 0 Anesthesia: GETA Surgeon: Pierre Barbour Was there an cashier assistant present: No Estimated blood loss (cc): 250 Specimen: 0 Condition: stable Disposition: PACU Procedure in Detail: History Chago Saab is a 63-year-old white male with history of severe peripheral vascular and cerebrovascular and cardiac disease. He is status post a right carotid endarterectomy approximately 2 years ago. On subsequent follow-ups he was found to have elevated velocity in the carotid system. He has a known left internal carotid artery occlusion. Because of the persistent elevation and also complaints of dizziness the patient was recommended to undergo angiography. This was performed and demonstrated a high-grade lesion in the common carotid artery proximal to the previous right carotid endarterectomy site. A right carotid endarterectomy itself is widely patent without signs of stenosis. Therefore the patient was recommended to undergo redo carotid endarterectomy for the common carotid so that the perfusion to the brain could be improved as the bilateral anterior circulation is supplied by the right side. Procedure After informed consent was obtained the patient was taken to the operating room. General endotracheal anesthesia was established under arterial line pressure monitoring. A timeout protocol was observed. The right neck incision was then reopened. It was extended proximally towards the head of the clavicle. Dissection was carried down into the previous surgical area with a large amount of dense adhesions present which prolonged the dissection and control. Dissection was also made of the common carotid proximal to the base of the neck. After dissection was complete and control obtained of the common carotid artery immediately below the takeoff of the superior thyroid artery and the common carotid artery at the base of the neck And was administered a dose of 5000 units. After 3 minute delay the vessel was clamped. An 11 blade knife and Mcgarry scissors were used to open the artery. A 10-Telugu shunt was then inser ngozi atraumatically. Patency of the shunt was confirmed by the use of intraoperative Doppler. Evaluation of the plaque revealed a very thick and dense plaque present with areas of calcification. This extended more proximally than indicated on the angiogram. A dissection plane was then established. The dissection was carried circumferentially. It was found that at the proximal end of the previous patch which was a Hemashield patch there was a large amount of adherent atherosclerotic material. This required division of some of the sutures in order to remove this material. After this was done the area was copiously irrigated. A tacking suture were was necessary in the proximal portion of the artery. A bovine pericardial patch was sent shown into position using 2 6-0 Prolene sutures onto the common carotid artery. Leaving a small space open the shunt was clamped divided and removed. The final few sutures were placed. The area was then flushed to remove all air from this area and then pulsatile flow was restored into the right carotid artery. Excellent Doppler signals and pulsations were present. The area was then irrigated. Marcaine was infiltrated into the wound edges. The patient had significant oozing from the surrounding tissue due to his dual antiplatelet therapy and the redo procedure. This took an extraordinary long time and multiple applications of topical thrombostatic order to stop the oozing. In addition 3 individual boluses of protamine 10 mg were administered. After this was accomplished the wound was dry and then closed using interrupted sutures. Dry sterile dressing was applied. The patient was extubated in the operating room. He was on B neurologically intact. He was then transported from the operating room to the recovery room in stable condition. There were no intraoperative complications. The patient will be transferred eventually from the recovery room to the ICU as there are no [address] [place] [address] beds available at the time of this dictation.
[2019-02-24] MEDS ORDERED: Acetaminophen 325 MG TABLET PO PRN (14:38)
[2019-02-24] MEDS ORDERED: Naloxone 0.4 MG/ML INJ IVP PRN (14:38)
[2019-02-24] MEDS ORDERED: Ondansetron 4 MG/2 ML VIAL IVP PRN (14:38)
[2019-02-24] MEDS: Gabapentin 300 MG CAPSULE PO SCH ×2 (15:39→20:32)
[2019-02-24] MEDS: *HR* HYDROcodone/Acet 5/325 mg TABLET PO PRN ×2 (15:59→22:00)
[2019-02-25 03:46] LABS: Basophils % 0.1 %; Hematocrit 26.5 % (37.5-50.1); Hemoglobin 9.3 g/dL (12.9-16.9); Immature Granulocytes % 0.5 % (0-4); Lymphocytes % 8.9 %; Mean Corpuscular HGB Conc 35.1 g/dL (31.6-35.5); Mean Corpuscular Hemoglobin 32.7 pg (28.0-33.3); Mean Corpuscular Volume 93.3 fL (83.0-100.0); Monocytes # 1.1 K/mcL (0.0-1.3); Monocytes % 9.9 %; Neutrophils # 8.9 K/mcL (1.6-8.9); Platelet Count 198 K/mcL (140-400); Red Blood Count 2.84 M/mcL (4.19-5.50); Red Cell Distribution Width 12.9 % (11.5-14.5); Segmented Neutrophils % 80.6 %; White Blood Count 11.1 K/mcL (4.3-11.1)
[2019-02-25 03:52] LABS: Calcium 8.9 mg/dL (8.6-10.3); Potassium 4.1 mEq/L (3.5-5.1)
[2019-02-25] MEDS: Levothyroxine 25 MCG TABLET PO SCH (06:00)
[2019-02-25] MEDS: Isosorbide MONOnitrate (24 HR) 60 MG TAB.ER.24H PO SCH (08:20)
[2019-02-25] MEDS: Gabapentin 300 MG CAPSULE PO SCH ×3 (08:20→20:13)
--- NOTE | 2019-02-25 12:46 | Discharge Summary ---
Date of Encounter: 02/27/19 Time of Encounter: 10:10 - Discharge Diagnosis (1) Stenosis of carotid artery Priority: Primary Status: Acute Comments: Patient developed restenosis of right common carotid artery. Qualifiers: Laterality: right Qualified Code(s): I65.21 - Occlusion and stenosis of right carotid artery (2) PAD (peripheral artery disease) Priority: Secondary Status: Chronic Comments: History of lower extremity vascular disease (3) Coronary artery disease Priority: Secondary Status: Chronic Comments: History of coronary artery disease Qualifiers: Coronary Disease-Associated Artery/Lesion type: [place] artery [place] vs. transplanted heart: [place] heart Associated angina: without angina Qualified Code(s): I25.10 - Atherosclerotic heart disease of [place] coronary artery without angina pectoris - Hospital Course Hospital course: Mr. Saab is a 63 year old male Root undergone a right carotid endarterectomy approximately 2 years ago. He was noted on follow-up scans to have a progressive elevation of his carotid artery velocities suggesting a critical stenosis. Patient had some dizziness and this provoked an angiogram. This demonstrated a high-grade lesion in the common carotid artery. The area of the endarterectomy was widely patent. The area of stenosis was in the common carotid artery itself immediately proximal to the stenosis. Therefore the patient was recommended to undergo redo carotid endarterectomy. The patient has a known left internal carotid artery occlusion. Patient tolerated the procedure well which was done under general endotracheal anesthesia. The patient was very hypertensive immediately before surgery. Postoperatively he had some episodes of hypotension. This delayed his ambulation postop. He then complained of headaches and weakness which prolonged his hospitalization further. Finally on postoperative day #3 he was felt fit for discharge. He will be discharged home today. Instructions were given in regards to his diet and exercise and medications and wound care. All questions were answered. - Time Spent with Patient Total time spent providing and/or coordinating discharge services: - Discharge Medications Prescriptions: New HYDROcodone/Acet 5/325 mg [[place] 5-325 mg] 1 tab PO Q6HR PRN 7 Days #10 tablet PRN Reason: Moderate Pain Continued Atorvastatin [Lipitor] 40 mg PO HS Aspirin 81 mg PO DAILY Levothyroxine [Synthroid] 25 mcg PO DAILY Lisinopril [Zestril] 10 mg PO DAILY Clopidogrel [Plavix] 75 mg PO DAILY Carvedilol 12.5 mg PO BID Carvedilol [Coreg] 25 mg PO BID Gabapentin [Neurontin] 300 mg PO TID Isosorbide MONOnitrate (24 HR) [Imdur] 60 mg PO DAILY Home Medications: Aspirin 81 mg PO DAILY 01/31/16 [History] Atorvastatin [Lipitor] 40 mg PO HS 01/31/16 [History] Levothyroxine [Synthroid] 25 mcg PO DAILY 01/31/16 [History] Clopidogrel [Plavix] 75 mg PO DAILY 12/21/16 [History] Lisinopril [Zestril] 10 mg PO DAILY 12/21/16 [History] Carvedilol 12.5 mg PO BID 01/15/17 [History] Carvedilol [Coreg] 25 mg PO BID 02/24/19 [History] Gabapentin [Neurontin] 300 mg PO TID 02/24/19 [History] Isosorbide MONOnitrate (24 HR) [Imdur] 60 mg PO DAILY 02/24/19 [History] HYDROcodone/Acet 5/325 mg [[place] 5-325 mg] 1 tab PO Q6HR PRN 7 Days #10 tablet 02/27/19 [Rx] Allergies/Adverse Reactions: Allergy/AdvReac Type Severity Reaction Status Date / Time No Known Allergies Allergy Verified 02/24/19 08:09 Date of admission: 02/24/19 14:37 Primary care physician: Jaida Morel Consults: None Procedure(s) Performed: Redo right carotid endarterectomy with bovine pericardial patch angioplasty Discharging clinician: Pierre Barbour Anticipated date of discharge: 02/27/19 Exam Vital Signs, Last 4 Hours Temp Pulse Resp BP Pulse Ox 02/25/19 11:36 98.1 F 02/25/19 09:00 64 15 91/48 90 General: Present: Conversant, No Apparent Distress, Well developed, Well nourished HEENT: Present: Atraumatic, Normocephaly, Trachea midline Neck: Absent: JVD Cardiac: Present: Reg Rate and Rhythm Lungs: Present: Normal Breath Sounds Neuro: Present: Alert and responsive, No focal deficits noted, Cranial nerves grossly intact, Motor nerves grossly intact, Sensory nerves grossly intact Vascular: Present: Surgical incisions (Right neck incision is clean and dry. Patient does have ecchymosis on the neck.) - Patient Status Disposition: Home, Self-Care Condition: Good Functional capacity at discharge: independent ambulation Overall status at discharge: patient is progressing back to baseline - Discharge Instructions Follow Up With: Jaida Morel CNP [Advanced Practice Nurse] - 03/04/19 2:30 pm Pierre Barbour MD [Partnered Physician] - 03/18/19 3:30 pm Additional Instructions: keep right neck incision dry for total of 5 days following surgery No lifting greater than 10 pounds. No manual labor. No driving. Use ice pack on right neck for 48 hours following discharge. Patient will may walk inside or outside. Patient may use stairs as tolerated. Resume usual home medications - Diet and Activity Activity: increase activity as tolerated Diet: low fat, low cholesterol
[2019-02-25] MEDS ORDERED: 0.9 % Sodium Chloride 250 ML IVC ONE (13:25)
[2019-02-25] MEDS ORDERED: 0.9 % Sodium Chloride 250 ML ONE (13:28)
[2019-02-25] MEDS ORDERED: Mag Hydrox/Al Hydrox/Simeth 30 ML UDC PO ONE (15:05)
--- NOTE | 2019-02-25 17:18 | Vascular/[facility] Progress Note ---
Date of Encounter: 02/25/19 Time of Encounter: 17:15 - Assessment and plan (1) Stenosis of carotid artery Current Visit: Yes Status: Acute Postop day 1 status post right carotid endarterectomy redo surgery. Patient had some hypotension followed by dizziness and so his progression of physical activities has been limited. Patient will remain another night for further observation. Qualifiers: Laterality: right Qualified Code(s): I65.21 - Occlusion and stenosis of right carotid artery (2) PAD (peripheral artery disease) Current Visit: No Status: Chronic (3) Coronary artery disease Current Visit: No Status: Chronic Qualifiers: Coronary Disease-Associated Artery/Lesion type: [place] artery [place] vs. transplanted heart: [place] heart Associated angina: without angina Qualified Code(s): I25.10 - Atherosclerotic heart disease of [place] coronary artery without angina pectoris - Subjective Interval history: Patient is in ICU due to lack of beds on 2 N. Patient had an uneventful night. Later this morning the patient developed hypotension thought secondary to his beta blockade. He received a bolus of IV fluid. His pressure has improved. He then complains of dizziness and so his progression of physical activity has been stymied due to these issues. Patient has been at bedrest for most of the afternoon. He still feels he has some dizziness at this time. He has no focal neurologic deficits however. Vital Signs, Last 4 Hours Temp Pulse Resp BP Pulse Ox 02/25/19 17:00 62 15 108/51 94 02/25/19 15:48 98.3 F 02/25/19 15:00 60 16 99/43 94 02/25/19 14:00 62 14 95/35 89 - Physical Examination General: Present: Conversant, No Apparent Distress, Well developed, Well nourished HEENT: Present: Atraumatic, Trachea midline Neck: Absent: JVD Cardiac: Present: Reg Rate and Rhythm Lungs: Present: Normal Breath Sounds Neuro: Present: Alert and responsive, No focal deficits noted, Cranial nerves grossly intact Vascular: Present: Surgical incisions (Right neck incision is clean and dry.) Skin: Present: No rashes noted on visualized skin Results 02/25/19 03:14 02/25/19 03:14 Lab Results, Last 24 hours 02/25/19 02/25/19 03:14 03:14 WBC 11.1 Hgb 9.3 L Hct 26.5 L Plt Count 198 Sodium 130 L Potassium 4.1 Chloride 100 Carbon Dioxide 21 L BUN 19 Creatinine 1.49 H Glucose 128 H Calcium 8.9 Consult Discharge Plan - Plan Referrals: Jaida Morel CNP [Advanced Practice Nurse] - 03/04/19 2:30 pm Pierre Barbour MD [Partnered Physician] - 03/18/19 3:30 pm
[2019-02-26] MEDS: *HR* HYDROcodone/Acet 5/325 mg TABLET PO PRN ×5 (03:38→23:50)
[2019-02-26] MEDS: Levothyroxine 25 MCG TABLET PO SCH (06:27)
[2019-02-26] MEDS: Isosorbide MONOnitrate (24 HR) 60 MG TAB.ER.24H PO SCH (08:55)
[2019-02-26] MEDS: Gabapentin 300 MG CAPSULE PO SCH ×3 (08:56→20:11)
--- NOTE | 2019-02-26 19:24 | Vascular/[facility] Progress Note ---
Date of Encounter: 02/26/19 Time of Encounter: 19:22 - Assessment and plan (1) Stenosis of carotid artery Current Visit: Yes Status: Acute Postop day 2 status post right carotid endarterectomy redo surgery. Patient had some dizziness and so his progression of physical activities has been limited. Patient will remain another night for further observation. The hypotension appears to be resolved. Anticipate discharge in a.m. Qualifiers: Laterality: right Qualified Code(s): I65.21 - Occlusion and stenosis of right carotid artery (2) PAD (peripheral artery disease) Current Visit: No Status: Chronic (3) Coronary artery disease Current Visit: No Status: Chronic Qualifiers: Coronary Disease-Associated Artery/Lesion type: [place] artery [place] vs. transplanted heart: [place] heart Associated angina: without angina Qualified Code(s): I25.10 - Atherosclerotic heart disease of [place] coronary artery without angina pectoris - Subjective Interval history: Patient was transferred to [address] [place] [address] last night. He has had a relatively uneventful day but he still feels tired and has neck pain and some dizziness. His blood pressure is improved and is stayed with a systolic greater than 100 for the day. Patient is not feeling well enough to go home yet today. He has not done any walking yet. He has been up to the chair. Vital Signs, Last 4 Hours Temp Pulse Resp BP Pulse Ox 02/26/19 16:32 98.9 F 82 18 108/55 94 - Physical Examination General: Present: Conversant, No Apparent Distress HEENT: Present: Atraumatic, Trachea midline Cardiac: Present: Reg Rate and Rhythm Lungs: Present: Normal Breath Sounds Neuro: Present: Alert and responsive, No focal deficits noted, Cranial nerves grossly intact, Motor nerves grossly intact, Sensory nerves grossly intact Vascular: Present: Surgical incisions (Right neck surgical site is clean and dry. Patient has a mild amount of ecchymosis present.) Results 02/25/19 03:14 02/25/19 03:14 Consult Discharge Plan - Plan Additional Instructions: keep right neck incision dry for total of 5 days following surgery No lifting greater than 10 pounds. No manual labor. No driving. Use ice pack on right neck for 48 hours following discharge. Patient will may walk inside or outside. Patient may use stairs as tolerated. Resume usual home medications Referrals: Jaida Morel CNP [Advanced Practice Nurse] - 03/04/19 2:30 pm Pierre Barbour MD [Partnered Physician] - 03/18/19 3:30 pm
[2019-02-27] MEDS: Levothyroxine 25 MCG TABLET PO SCH (04:50)
[2019-02-27 07:00] VITALS: BP 129/53
[2019-02-27] MEDS: *HR* HYDROcodone/Acet 5/325 mg TABLET PO PRN (08:46)
[2019-02-27] MEDS: Gabapentin 300 MG CAPSULE PO SCH (08:48)
[2019-02-27] MEDS: Isosorbide MONOnitrate (24 HR) 60 MG TAB.ER.24H PO SCH (08:48)
== END 2019-02-27 12:37 | disposition home or self-care (01) | DRG 38 ==
LOC: SAMDAY 06:06 → ICNU 14:37 → 2NNU 02-25 19:46
PROVIDERS: ADMIT Surgery Vascular Surgery; ATTEND Surgery Vascular Surgery